=== PATIENT | female | born 1965 | race Caucasian/White ===

== ENCOUNTER 2016-08-13 19:11 | Emergency (ER) | payer BC ==
[2016-08-13] MEDS ORDERED: diphenhydrAMINE 50 MG/ML 1 ML VIAL IVP STA (19:38)
[2016-08-13] MEDS ORDERED: METOCLOPRAMIDE 5 MG/ML 2 ML VIAL IVP STA (19:38)
[2016-08-13] MEDS ORDERED: SODIUM CHLORIDE 0.9% 1,000 ML IV STA (19:38)
[2016-08-13] MEDS ORDERED: cloNIDine HCL 0.1 MG TAB PO STA (19:39)
[2016-08-13] MEDS ORDERED: LORazepam 2 MG/ML SYRINGE IV STA (19:43)
--- NOTE | 2016-08-13 19:57 | ED ---
Headache HPI - General Chief Complaint: Headache Stated Complaint: headaches/high blood pressure Time Seen by Provider: 08/13/16 19:24 Source: RN notes reviewed Mode of arrival: ambulatory Limitations: no limitations - History of Present Illness Initial Comments: Patient is a 51-year-old female chief complaint of a headache for approximately 4 days. She also reports that she's had elevated blood pressure past 4 days. She stated she checks it at [facility] and is always over 180/100. Patient denies the emergency department with a blood pressure 201/112. Patient states that she does not have a history of high blood pressure but she decided to take some stpv-wdc-eubdnwi herbal supplements to help with her blood pressure over the past week. She states that her head has a lump over the right temporal region that tends to pulsate with this headache. Patient states that she's had no abnormal mental status or dizziness. She denies any chest pain or shortness of breath. She states that she does have some changes in vision. She is a diabetic managed with metformin, she states that she has not had her metformin in over a week if she is out of her medication. She states that she has a feet headache which rates a 8 out of 10 at this time. - Related Data Previous Rx's Medication Instructions Recorded Lisinopril [Zestril] 5 mg PO BID #20 tab 08/13/16 Allergies Allergy/AdvReac Type Severity Reaction Status Date / Time acetaminophen Allergy Severe Anaphylaxis Verified 08/13/16 19:26 aspirin Allergy Anaphylaxis Verified 08/13/16 19:26 diphenhydramine HCl Allergy Anaphylaxis Verified 08/13/16 19:26 [From Benadryl] latex Allergy Rash/Hives Verified 08/13/16 19:26 NSAIDS (Non-Steroidal Allergy Dyspnea Verified 08/13/16 19:26 Anti-Inflamma Review of Systems ROS Statement: Those systems with pertinent positive or pertinent negative responses have been documented in the HPI. ROS Other: All systems not noted in ROS Statement are negative. Past Medical History Past Medical History: Asthma, Chest Pain / Angina, Diabetes Mellitus, GERD/ Reflux, Thyroid Disorder History of Any Multi-Drug Resistant Organisms: None Reported Past Surgical History: Adenoidectomy, Tonsillectomy Additional Past Surgical History / Comment(s): WRIST SURGERY Past Anesthesia/Blood Transfusion Reactions: No Reported Reaction Past Psychological History: Depression Smoking Status: Never smoker Past Alcohol Use History: None Reported Past Drug Use History: None Reported - Past Family History Father Additional Family Medical History / Comment(s): unknown Mother Additional Family Medical History / Comment(s): arthritis, carpal tunnel, ex smoker, wears glasses General Exam Limitations: no limitations Course Vital Signs 08/13/16 08/13/16 08/13/16 19:18 21:06 21:52 Temperature 98.1 F 97.5 F L Pulse Rate 78 93 79 Respiratory 20 18 18 Rate Blood Pressure 201/112 158/81 128/79 O2 Sat by Pulse 97 99 98 Oximetry Medical Decision Making - Medical Decision Making Patient is a 51-year-old female chief complaint of a headache for approximately 4 days. She also reports that she's had elevated blood pressure past 4 days. She stated she checks it at [facility] and is always over 180/100. Patient denies the emergency department with a blood pressure 201/112. Patient states that she does not have a history of high blood pressure but she decided to take some uunf-bir-ccdfvoj herbal supplements to help with her blood pressure over the past week. She states that her head has a lump over the right temporal region that tends to pulsate with this headache. Patient CT brain negative for acute process, there is evidnce of chronic sinusitis. Patient given IV diazepam and catapress. BP has dropped to 120/85. Patient reports her headache is subsiding. She states that labs are negative for any kidney damage. Patient reports she has not had her metformin medication in one week, I discussed that she needs to be on a blood pressure medication given guidelines and her being diabetic. Patient will be started on lisinopril 5mg BID. Patient advised to follow up with PCP in one week. REturn parameters discussed. - Lab Data Result diagrams: 08/13/16 20:11 08/13/16 20:11 Lab Results 08/13/16 08/13/16 Range/Units 20:11 20:11 WBC 10.1 (3.8-10.6) k/uL RBC 5.75 H (3.80-5.40) m/uL Hgb 12.5 (11.4-16.0) gm/dL Hct 41.4 (34.0-46.0) % MCV 72.0 L (80.0-100.0) fL MCH 21.7 L (25.0-35.0) pg MCHC 30.2 L (31.0-37.0) g/dL RDW 18.6 H (11.5-15.5) % Plt Count 376 (150-450) k/uL Neutrophils % 63 % Lymphocytes % 27 % Monocytes % 3 % Eosinophils % 4 % Basophils % 1 % Neutrophils # 6.3 (1.3-7.7) k/uL Lymphocytes # 2.7 (1.0-4.8) k/uL Monocytes # 0.3 (0-1.0) k/uL Eosinophils # 0.4 (0-0.7) k/uL Basophils # 0.1 (0-0.2) k/uL Hypochromasia Moderate Anisocytosis Slight Microcytosis Marked Sodium 138 (137-145) mmol/L Potassium 4.3 (3.5-5.1) mmol/L Chloride 102 (98-107) mmol/L Carbon Dioxide 26 (22-30) mmol/L Anion Gap 10 mmol/L BUN 9 (7-17) mg/dL Creatinine 0.50 L (0.52-1.04) mg/dL Est GFR (MDRD) Af Amer >60 (>60 ml/min/1.73 sqM) Est GFR (MDRD) Non-Af >60 (>60 ml/min/1.73 sqM) Glucose 339 H (74-99) mg/dL Calcium 9.5 (8.4-10.2) mg/dL - Radiology Data Radiology results: report reviewed No acute intracranial hemorrhage or midline shift seen. Acute on chronic paranasal pansinusitis as detailed above. Is a broad-based dialysis tick projection the right parietal region on axial image 29 from the Mammogram which could reflect osteochondroma. There is mild to moderate mucosal thickening involving the bilateral sphenoid sinuses within the air-fluid level of the left sphenoid sinus noted. There is mild to moderate mucosal thickening involving the ethmoid sinuses bilaterally and patchy opacifications bilaterally. There is mild mucosal thickening involving Sinuses bilaterally with air-fluid levels and left basilar sinus noted. Disposition Clinical Impression: Hypertension, Headache Disposition: HOME SELF-CARE Condition: Good Instructions: Acute Headache (ED), Hypertension (ED) Additional Instructions: Patient denies that she is follow-up with her primary care provider in 1-2 days about starting maintenance high blood pressure medication and refills of her diabetes medication. Return the emergency Department if any alarming signs or symptoms occur. Prescriptions: Lisinopril [Zestril] 5 mg PO BID #20 tab Referrals: Ortiz Martini MD [Primary Care Provider] - 1-2 days Time of Disposition: 21:20
[2016-08-13 20:29] LABS: Anisocytosis Slight; Basophils # (A) 0.1 k/uL (0-0.2); Basophils % (A) 1 %; CH 22.2; Eosinophils # (A) 0.4 k/uL (0-0.7); Eosinophils % (A) 4 %; HCT 41.4 % (34.0-46.0); HDW 3.06; HGB 12.5 gm/dL (11.4-16.0); Hypochromasia Moderate; Luc # (Auto) 0.31; Luc % (Auto) 3; Lymphocytes # (A) 2.7 k/uL (1.0-4.8); Lymphocytes % (A) 27 %; MCH 21.7 pg (25.0-35.0); MCHC 30.2 g/dL (31.0-37.0); Mean Platelet Volume 7.2; Microcytosis Marked; Monocytes # (A) 0.3 k/uL (0-1.0); Monocytes % (A) 3 %; Neutrophils # (A) 6.3 k/uL (1.3-7.7); Neutrophils % (A) 63 %; RBC 5.75 m/uL (3.80-5.40); RDW 18.6 % (11.5-15.5); WBC 10.1 k/uL (3.8-10.6)
--- NOTE | 2016-08-13 20:45 | CT ---
EXAMINATION TYPE: CT brain wo con DATE OF EXAM: 08/13/2016 8:38 PM COMPARISON: NONE HISTORY: Headache for [address] DLP: 1054.2 mGycm. Automated Exposure Control for Dose Reduction was Utilized. TECHNIQUE: CT scan of the head is performed without contrast. FINDINGS: There is no acute intracranial hemorrhage, mass effect, or midline shift identified. The ventricles and sulci are within normal limits in size. The globes are intact bilaterally. There is mild to moderate mucosal thickening involving bilateral sphenoid sinuses with air-fluid leve l in left sphenoid sinus noted. There is mild to moderate mucosal thickening involving ethmoid sinuse s bilaterally with patchy opacification bilaterally. There is mild mucosal thickening involving maxil joseline sinuses bilaterally with air-fluid level in left maxillary sinus noted. There is mild to moderat e mucosal thickening involving frontal sinuses bilaterally with dependent opacification also seen in left frontal sinus.. Broad-based ossific projection right parietal region on axial image 29 from calvarium could reflect o steochondroma. IMPRESSION: No acute intracranial hemorrhage or midline shift is seen. Acute on chronic paranasal pa nsinusitis as detailed above.
[2016-08-13 20:46] LABS: Anion Gap 10 mmol/L; Blood Urea Nitrogen 9 mg/dL (7-17); Calcium 9.5 mg/dL (8.4-10.2); Carbon Dioxide 26 mmol/L (22-30); Chloride 102 mmol/L (98-107); Glucose 339 mg/dL (74-99); Non-African American GFR(MDRD) >60 (>60 ml/min/1.73 sqM); Potassium 4.3 mmol/L (3.5-5.1); Sodium 138 mmol/L (137-145)
[2016-08-13 21:08] VITALS: RESP 18
[2016-08-13 21:53] VITALS: BP 128/79; PULSE 79; TEMP 97.5
== END 2016-08-13 21:53 | disposition home or self-care (01) ==
LOC: EC 19:11
DX: J32.4 Chronic pansinusitis (principal); I10 Essential (primary) hypertension; E11.9 Type 2 diabetes mellitus without complications; Z88.6 Allergy status to analgesic agent; Z88.8 Allergy status to other drugs, medicaments and biological substances; Z79.82 Long term (current) use of aspirin; Z91.040 Latex allergy status; Z79.899 Other long term (current) drug therapy
CPT/HCPCS: 99284; 96374; 96361; 36415; 80048; 85025; 70450; J2060

== ENCOUNTER 2017-04-17 19:12 | Emergency (ER) | payer BC ==
[2017-04-17 19:24] VITALS: TEMP 98.2
[2017-04-17] MEDS ORDERED: cloNIDine HCL 0.1 MG TAB PO STA (19:47)
--- NOTE | 2017-04-17 20:35 | ED ---
General Adult HPI - General Chief complaint: Chest Pain Stated complaint: Tingling arms/high blood pressure/headache Time Seen by Provider: 04/17/17 19:26 Source: patient Mode of arrival: wheelchair Limitations: no limitations - History of Present Illness Initial comments: This is a 52-year-old female with a history of hypertension and diabetes who presents or urgency department for multiple complaints. She states that she has some numbness on the right posterior aspect for scalp and radiates down into her neck. She is also been having some palpitations. No chest pain. She states that she has an aching in her extremities at times. She has noted that over the last 3 days that her blood pressure has been elevated. She is on hydrochlorothiazide however does not know the dosage. She states that she has been compliant with his medication. She states that she has not seen her primary care doctor in quite some time. She was here back in August for similar episodes and was found to have hypertension at that time. He was advised her to follow up with her primary care doctor however she has not done so. She denies any focal weakness, numbness, or tingling. She denies any difficult speech or swallowing. She denies any other acute complaints. - Related Data Home Medications Medication Instructions Recorded Confirmed Albuterol Inhaler [Ventolin Hfa 1 - 2 puff INHALATION RT-QID PRN 04/17/17 Inhaler] Albuterol Nebulized [Ventolin 2.5 mg INHALATION RT-QID PRN 04/17/17 04/17/17 Nebulized] Docusate [Colace] 100 mg PO DAILY PRN 04/17/17 04/17/17 Hydrochlorothiazide [Hydrodiuril] 25 mg PO DAILY 04/17/17 04/17/17 metFORMIN HCL 1,000 mg PO BID 04/17/17 04/17/17 Allergies Allergy/AdvReac Type Severity Reaction Status Date / Time acetaminophen Allergy Severe Anaphylaxis Verified 04/17/17 19:56 aspirin Allergy Anaphylaxis Verified 04/17/17 19:56 diphenhydramine HCl Allergy Anaphylaxis Verified 04/17/17 19:56 [From Benadryl] latex Allergy Rash/Hives Verified 04/17/17 19:56 NSAIDS (Non-Steroidal Allergy Dyspnea Verified 04/17/17 19:56 Anti-Inflamma Review of Systems ROS Statement: Those systems with pertinent positive or pertinent negative responses have been documented in the HPI. ROS Other: All systems not noted in ROS Statement are negative. Past Medical History Past Medical History: Asthma, Chest Pain / Angina, Diabetes Mellitus, GERD/ Reflux, Thyroid Disorder History of Any Multi-Drug Resistant Organisms: None Reported Past Surgical History: Adenoidectomy, Tonsillectomy Additional Past Surgical History / Comment(s): WRIST SURGERY Past Anesthesia/Blood Transfusion Reactions: No Reported Reaction Past Psychological History: Depression Smoking Status: Never smoker Past Alcohol Use History: None Reported Past Drug Use History: None Reported - Past Family History Father Additional Family Medical History / Comment(s): unknown Mother Additional Family Medical History / Comment(s): arthritis, carpal tunnel, ex smoker, wears glasses General Exam - General Exam Comments Initial Comments: Constitutional: Awake alert Appears comfortable Head: Normocephalic atraumatic Eyes: no conjunctival injection No scleral icterus EOMI Neck: No JVD Supple Heart: Regular rate rhythm normal S1-S2 no murmurs Lungs: Clear to auscultation bilaterally No wheezing No rales Abdomen: Soft nondistended nontender Extremities: Non edematous DP pulses intact Radial pulses intact Neuro: A&Ox3 cranial nerves II through XII are grossly intact, 5 out of 5 strength in upper and lower extremities bilaterally, sensation intact to light touch in all extremities Psych: Appropriate mood and affect Limitations: no limitations Course Vital Signs 04/17/17 04/17/17 04/17/17 19:22 21:01 21:37 Temperature 98.2 F Pulse Rate 99 87 88 Respiratory 20 18 16 Rate Blood Pressure 198/104 135/78 125/74 O2 Sat by Pulse 98 97 Oximetry EKG Findings - EKG Comments: EKG Findings:: EKG showing no signs rhythm with a rate of 82. No abnormal ST segment changes or T-wave inversion. QTC is 455. Other intervals normal. No ectopy. Medical Decision Making - Medical Decision Making Is a 52-year-old female who presents emergency department for multiple complaints including numbness and tingling in her extremities, headache, right- sided urine neck fullness, and headache. Blood pressure was severely elevated. She was given 0.1 mg of clonidine with resolution of her blood pressure and majority of her symptoms. She still a little bit a numbness in her extremities and a mild headache. The patient states that she is ALLERGIC to all NSAIDs and acetaminophen. Told her that I would not treat her headache with opiates. Patient stated that she wanted to go home. She is on hydrochlorothiazide and I told her that if needed she could take a second dose in the afternoon but she needs close follow- up with her primary doctor for better blood pressure control. Told to return if she had worsening or changing symptoms. All questions were answered. - Lab Data Result diagrams: 04/17/17 20:28 04/17/17 20:28 Lab Results 04/17/17 04/17/17 04/17/17 Range/Units 20:28 20:28 20:28 WBC 9.3 (3.8-10.6) k/uL RBC 5.80 H (3.80-5.40) m/uL Hgb 12.8 (11.4-16.0) gm/dL Hct 41.1 (34.0-46.0) % MCV 70.8 L (80.0-100.0) fL MCH 22.0 L (25.0-35.0) pg MCHC 31.1 (31.0-37.0) g/dL RDW 18.5 H (11.5-15.5) % Plt Count 369 (150-450) k/uL Neutrophils % 56 % Lymphocytes % 33 % Monocytes % 5 % Eosinophils % 4 % Basophils % 1 % Neutrophils # 5.2 (1.3-7.7) k/uL Lymphocytes # 3.1 (1.0-4.8) k/uL Monocytes # 0.5 (0-1.0) k/uL Eosinophils # 0.4 (0-0.7) k/uL Basophils # 0.1 (0-0.2) k/uL Hypochromasia Slight Anisocytosis Slight Microcytosis Marked Sodium 137 (137-145) mmol/L Potassium 4.6 (3.5-5.1) mmol/L Chloride 100 (98-107) mmol/L Carbon Dioxide 24 (22-30) mmol/L Anion Gap 13 mmol/L BUN 9 (7-17) mg/dL Creatinine 0.40 L (0.52-1.04) mg/dL Est GFR (MDRD) Af Amer >60 (>60 ml/min/1.73 sqM) Est GFR (MDRD) Non-Af >60 (>60 ml/min/1.73 sqM) Glucose 278 H (74-99) mg/dL Calcium 10.2 (8.4-10.2) mg/dL Total Bilirubin 0.4 (0.2-1.3) mg/dL AST 36 (14-36) U/L ALT 42 (9-52) U/L Alkaline Phosphatase 93 (38-126) U/L Total Protein 7.8 (6.3-8.2) g/dL Albumin 4.4 (3.5-5.0) g/dL Urine Color Light Yellow Urine Appearance Clear (Clear) Urine pH 6.0 (5.0-8.0) Ur Specific Byron 1.017 (1.001-1.035) Urine Protein 1+ H (Negative) Urine Glucose (UA) 4+ H (Negative) Urine Ketones Negative (Negative) Urine Blood Negative (Negative) Urine Nitrite Negative (Negative) Urine Bilirubin Negative (Negative) Urine Urobilinogen <2.0 (<2.0) mg/dL Ur Leukocyte Esterase Negative (Negative) Urine RBC 1 (0-5) /hpf Urine WBC 6 H (0-5) /hpf Ur Squamous Epith Cells 1 (0-4) /hpf Urine Mucus Rare H (None) /hpf Disposition Clinical Impression: HTN (hypertension), Headache Disposition: HOME SELF-CARE Condition: Stable Instructions: Hypertensive Crisis (ED) Referrals: Ortiz Martini MD [STAFF PHYSICIAN] - 1-2 days Paul Samuel MD [STAFF PHYSICIAN] - 1-2 days
[2017-04-17 20:42] LABS: Anisocytosis Slight; Basophils # (A) 0.1 k/uL (0-0.2); Basophils % (A) 1 %; CH 22.1; CHCM 31.4; Eosinophils # (A) 0.4 k/uL (0-0.7); Eosinophils % (A) 4 %; HCT 41.1 % (34.0-46.0); HDW 2.88; HGB 12.8 gm/dL (11.4-16.0); Hypochromasia Slight; Luc % (Auto) 1; Lymphocytes # (A) 3.1 k/uL (1.0-4.8); Lymphocytes % (A) 33 %; MCHC 31.1 g/dL (31.0-37.0); MCV 70.8 fL (80.0-100.0); Mean Platelet Volume 8.2; Microcytosis Marked; Monocytes # (A) 0.5 k/uL (0-1.0); Monocytes % (A) 5 %; Neutrophils # (A) 5.2 k/uL (1.3-7.7); Neutrophils % (A) 56 %; RDW 18.5 % (11.5-15.5); WBC 9.3 k/uL (3.8-10.6); WBC (Perox) 9.34
[2017-04-17 20:44] LABS: Appearance,Urine Clear (Clear); Bilirubin,Urine Negative (Negative); Glucose,Urine (UA) 4+ (Negative); Ketones,Urine Negative (Negative); Leukocyte Esterase,Urine Negative (Negative); Mucus,Urine Rare /hpf; Nitrite,Urine Negative (Negative); Particle Count 461; Protein,Urine 1+ (Negative); RBC,Urine 1 /hpf (0-5); Specific Gravity,Urine 1.017 (1.001-1.035); Squamous Epithelial Cell,Urine 1 /hpf (0-4); UA Billing (MACRO vs. MICRO) MICRO; Urobilinogen,Urine <2.0 mg/dL (<2.0); WBC,Urine 6 /hpf (0-5)
[2017-04-17 20:56] LABS: ALT 42 U/L (9-52); AST 36 U/L (14-36); Alkaline Phosphatase 93 U/L (38-126); Anion Gap 13 mmol/L; Blood Urea Nitrogen 9 mg/dL (7-17); Calcium 10.2 mg/dL (8.4-10.2); Carbon Dioxide 24 mmol/L (22-30); Chloride 100 mmol/L (98-107); Glucose 278 mg/dL (74-99); Non-African American GFR(MDRD) >60 (>60 ml/min/1.73 sqM); Potassium 4.6 mmol/L (3.5-5.1); Sodium 137 mmol/L (137-145); Total Bilirubin 0.4 mg/dL (0.2-1.3); Total Protein 7.8 g/dL (6.3-8.2)
--- NOTE | 2017-04-17 20:57 | CT ---
EXAMINATION TYPE: CT brain wo con DATE OF EXAM: 04/17/2017 COMPARISON: 08/13/2016 HISTORY: Hypertension and right side SUAREZ. CT DLP: 945.3 mGycm Automated exposure control for dose reduction was used. FINDINGS: Ventricles and sulci appear normal. There is no mass effect nor midline shift. There is no sign of in tracranial hemorrhage. The calvarium is intact. There is moderate mucosal thickening in the ethmoid s inuses extending into the frontal and sphenoid sinus. There is mild mucosal thickening in right maxil joseline sinus. IMPRESSION: NEGATIVE CT SCAN OF THE BRAIN. THERE IS PANSINUSITIS THAT IS SIMILAR TO OLD EXAM.
[2017-04-17 21:38] VITALS: BP 125/74; PULSE 88; RESP 16
== END 2017-04-17 21:40 | disposition home or self-care (01) ==
LOC: EC 19:12
DX: I10 Essential (primary) hypertension (principal); R51 Headache; E11.9 Type 2 diabetes mellitus without complications; Z88.5 Allergy status to narcotic agent; Z88.6 Allergy status to analgesic agent; Z88.8 Allergy status to other drugs, medicaments and biological substances; Z91.040 Latex allergy status; Z79.84 Long term (current) use of oral hypoglycemic drugs; Z79.899 Other long term (current) drug therapy
CPT/HCPCS: 36415; 70450; 80053; 81001; 85025; 93005; 99285

== ENCOUNTER 2017-05-18 07:50 | Day surgery (SDC) | payer BC ==
[2017-05-16 18:19] VITALS: BMI 37.0
[~2017-05-18 07:50] MED LIST: LACTATED RINGERS 1,000 ML IV SCH; LIDOCAINE 1% 20 ML VIAL (10MG/ML) FOR IV START INTRADERMA PRN
[2017-05-18 08:08] VITALS: RESP 16; TEMP 97.3
[2017-05-18] MEDS ORDERED: INSULIN ASPART 100 UNIT/ML 1 ML 10 ML VIAL SQ ONE (08:20)
[2017-05-18 08:22] LABS: Glucose,Whole Blood 362 mg/dL (75-99)
[2017-05-18] MEDS ORDERED: ONDANSETRON 4 MG/2 ML VIAL ONE (08:39)
[2017-05-18] MEDS ORDERED: PROPOFOL 10 MG/ML 20 ML VIAL IV ONE (08:39)
[2017-05-18] MEDS ORDERED: LIDOCAINE 1% INJ 10MG/ML (20 ML MDV) ONE (08:39)
[2017-05-18] MEDS ORDERED: MIDAZOLAM 2 MG/2 ML VIAL ONE (08:39)
--- NOTE | 2017-05-18 08:53 | P.PCN ---
Date of Procedure: 05/18/17 Procedure(s) Performed: BRIEF HISTORY: Patient is a 52-year-old, pleasant, white female, scheduled for an upper endoscopy as a part of evaluation of progressive dysphagia to solids for the last 1 year duration. She has more like a globus sensation in her throat area constantly with intermittent dysphagia to solids and liquids and has occasional heartburn. Also complains of some odynophagia. PROCEDURE PERFORMED: Esophagogastroduodenoscopy with biopsy. PREOPERATIVE DIAGNOSIS: Dysphagia and globus sensation. IV sedation per anesthesia. PROCEDURE: After informed consent was obtained, the patient was brought into the endoscopy unit. IV sedation was administered by Anesthesia under continuous monitoring. Initially the Olympus GIF-140 video endoscope was inserted into the mouth. Esophagus intubated without any difficulty. It was gradually advanced into the stomach and duodenum and carefully examined. The bulb and the second part of the duodenum appeared normal. The scope at this time was withdrawn to the stomach, adequately insufflated with air, and upon careful examination, mucosa of the antrum,had mild gastritis and biopsies were done from this area. The body, cardia and the fundus appeared normal. The scope was then withdrawn into the esophagus. The GE junction was located at 39 cm from the incisors. The esophagus appeared normal. There was no evidence of esophageal stricture. There were no erosions or ulcerations seen . The proximal cervical esophagus was carefully examined and that appeared normal. Multiple biopsies were done from esophagus to rule out eosinophilic esophagitis and the patient tolerated the procedure well. IMPRESSION: 1. Mild antral gastritis . 2. Normal-appearing esophagus with no evidence of esophagitis or esophageal stricture.. RECOMMENDATIONS: The findings of this examination were discussed with the patient as well as a family. She was advised to follow with the biopsy results.
[2017-05-18 09:28] VITALS: BP 133/91; PULSE 95
== END 2017-05-18 09:56 | disposition home or self-care (01) ==
LOC: ORWHC2ENDO 07:50
PROVIDERS: ATTEND Internal Medicine Gastroenterology
DX: K29.50 Unspecified chronic gastritis without bleeding (principal); K21.0 Gastro-esophageal reflux disease with esophagitis; J45.909 Unspecified asthma, uncomplicated; E11.9 Type 2 diabetes mellitus without complications; E04.1 Nontoxic single thyroid nodule; Z88.6 Allergy status to analgesic agent; Z88.8 Allergy status to other drugs, medicaments and biological substances; Z79.84 Long term (current) use of oral hypoglycemic drugs; Z79.899 Other long term (current) drug therapy
CPT/HCPCS: 43239; 81025; 88305; 88342; J2250; J2405; J2001; J2704

== ENCOUNTER → 2017-05-31 | Outpatient (CLI) | payer BC ==
--- NOTE | 2017-05-31 15:21 | XR ---
EXAMINATION TYPE: XR chest 2V DATE OF EXAM: 05/31/2017 COMPARISON: 11/20/2013 INDICATION: Cough history of asthma TECHNIQUE: Frontal and lateral views of the chest are obtained. FINDINGS: The heart size is normal. The pulmonary vasculature is normal. The lungs are clear. IMPRESSION: 1. No acute pulmonary process.
== END | disposition home or self-care (01) ==
LOC: RADXRMAIN 14:47
PROVIDERS: ATTEND Allergy & Immunology
DX: J45.909 Unspecified asthma, uncomplicated (principal)
CPT/HCPCS: 71020

== ENCOUNTER → 2017-05-31 | Outpatient (CLI) | payer BC ==
--- NOTE | 2017-05-31 15:12 | XR ---
EXAMINATION TYPE: XR knee complete RT DATE OF EXAM: 05/31/2017 COMPARISON: NONE HISTORY: Right knee pain, chronic TECHNIQUE: Three-view right knee FINDINGS: Joint spaces preserved. No acute fractures or dislocations are evident. No joint effusion i s evident. No periarticular erosions are evident. IMPRESSION: 1. Normal three-view right knee
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
--- NOTE | 2017-05-31 15:18 | XR ---
EXAMINATION TYPE: XR pelvis AP view DATE OF EXAM: 05/31/2017 COMPARISON: NONE HISTORY: Radiculopathy back pain TECHNIQUE: AP pelvis FINDINGS: Sacroiliac joints and symphysis pubis are normal. Femoral heads articulate with the acetabu lum. No acute fractures are evident. Normal bowel gas is present. IMPRESSION: 1. Normal AP pelvis
--- NOTE | 2017-05-31 15:33 | XR ---
EXAMINATION TYPE: XR cervical spine limited DATE OF EXAM: 05/31/2017 COMPARISON: NONE HISTORY: Radiculopathy chronic neck pain low back pain TECHNIQUE: Three-view cervical spine supplemented with submental vertex view FINDINGS: There is limitation of the C7-T1 interspace. The odontoid is limited on the odontoid view f rom mandible present with visualization of the submental vertex view Disc heights are preserved. Vertebral body heights are preserved. Alignment is normal. Prevertebral s pace is normal. Posterior spinal lamellar line is intact. IMPRESSION: 1. Visualized cervical spine appears normal.
== END | disposition home or self-care (01) ==
LOC: RADXRMAIN 14:39
PROVIDERS: ATTEND Internal Medicine Rheumatology
DX: M47.27 Other spondylosis with radiculopathy, lumbosacral region (principal); M54.12 Radiculopathy, cervical region; M25.561 Pain in right knee
CPT/HCPCS: 72040; 72100; 72170

== ENCOUNTER → 2018-01-16 | Outpatient (CLI) | payer BC ==
--- NOTE | 2018-01-16 13:36 | XR ---
EXAMINATION TYPE: XR chest 2V DATE OF EXAM: 01/16/2018 COMPARISON: Chest x-ray May 31, 2017 HISTORY: History of asthma presents with cough and shortness of breath for 2 days. TECHNIQUE: Frontal and lateral views of the chest are obtained. FINDINGS: There is no focal air space opacity, pleural effusion, or pneumothorax seen. The cardiac silhouette size is within normal limits. The osseous structures are intact. IMPRESSION: No suspicious acute pulmonary process. No significant change from prior.
== END | disposition home or self-care (01) ==
LOC: RADXRMAIN 12:40
PROVIDERS: ATTEND Family Medicine
DX: R05 Cough (principal)
CPT/HCPCS: 71046

== ENCOUNTER 2019-04-23 00:41 | Inpatient (IN) | payer BC ==
--- NOTE | 2019-04-23 01:02 | ED ---
Abdominal Pain HPI - General Chief Complaint: Abdominal Pain Stated Complaint: Back Pain Time Seen by Provider: 04/23/19 00:55 Source: patient Mode of arrival: wheelchair Limitations: physical limitation - History of Present Illness Initial Comments: Ceci is a 54yo female who presents the emergency department today for evaluation of right upper quadrant, right flank and back pain. Patient reports that she was in her usual state of health throughout the day yesterday, she had dinner around 9 PM, she reports she doesn't really like it but she had a few bites of hamburger helper. She reports around 10:30 she developed pain in her right flank, upper quadrant and back. Patient reports she feels like she is having some nausea but no vomiting and feels like her back is spasming due to the pain. Patient reports she has a history of kidney stones in the distant past but is nothing like this. Patient denies any previous GI surgeries. Any GI pathology. She denies any recent diarrhea though she does state she's been somewhat backed up and not had a good bowel movement. Denies any fevers or chills, chest pain or shortness of breath. - Related Data Home Medications Medication Instructions Recorded Confirmed Albuterol Inhaler [Ventolin Hfa 1 - 2 puff INHALATION RT-QID PRN 04/17/17 06/01/17 Inhaler] Docusate [Colace] 100 mg PO DAILY PRN 04/17/17 06/01/17 Hydrochlorothiazide [Hydrodiuril] 25 mg PO DAILY 04/17/17 06/01/17 metFORMIN HCL 1,000 mg PO BID 04/17/17 06/01/17 Fluconazole [Diflucan] 150 mg PO DAILY 06/01/17 Sulfamethox-Tmp 800-160Mg [Bactrim 1 tab PO Q12HR 06/01/17 DS 800-160 mg] Allergies Allergy/AdvReac Type Severity Reaction Status Date / Time acetaminophen Allergy Severe Anaphylaxis Verified 04/23/19 00:49 aspirin Allergy Anaphylaxis Verified 04/23/19 00:49 diphenhydramine HCl Allergy Anaphylaxis Verified 04/23/19 00:49 [From Benadryl] latex Allergy Rash/Hives Verified 04/23/19 00:49 NSAIDS (Non-Steroidal Allergy Dyspnea Verified 04/23/19 00:49 Anti-Inflamma STERIODS Allergy Rash/Hives Uncoded 04/23/19 00:49 Review of Systems ROS Statement: Those systems with pertinent positive or pertinent negative responses have been documented in the HPI. ROS Other: All systems not noted in ROS Statement are negative. Past Medical History Past Medical History: Asthma, Chest Pain / Angina, Diabetes Mellitus, GERD/Reflux, Thyroid Disorder History of Any Multi-Drug Resistant Organisms: None Reported Past Surgical History: Adenoidectomy, Tonsillectomy Additional Past Surgical History / Comment(s): WRIST SURGERY Past Anesthesia/Blood Transfusion Reactions: No Reported Reaction Past Psychological History: Depression Smoking Status: Never smoker Past Alcohol Use History: None Reported - Past Family History Father Additional Family Medical History / Comment(s): unknown Mother Additional Family Medical History / Comment(s): arthritis, carpal tunnel, ex smoker, wears glasses General Exam - General Exam Comments Initial Comments: Physical Exam GENERAL: Appears uncomfortable HENT: Normocephalic, Atraumatic. EYES: PERRL, EOMI PULMONARY: Unlabored respirations. No audible rales rhonchi or wheezing was noted. CARDIOVASCULAR: There is a regular rate and rhythm without any murmurs gallops or rubs. ABDOMEN: Soft with normal bowel sounds. Tenderness to palpation right upper quadrant, epigastrium SKIN: Skin is clear with no lesions or rashes and otherwise unremarkable. : Deferred NEUROLOGIC: Patient is alert and oriented x3. Moving all extremities spontaneously MUSCULOSKELETAL: Normal extremities with adequate strength and full range of motion. No lower extremity swelling or edema. No calf tenderness. PSYCHIATRIC: Normal psychiatric evaluation. Limitations: physical limitation Course Vital Signs 04/23/19 04/23/19 04/23/19 00:42 01:23 03:11 Temperature 98.1 F 98 F Pulse Rate 86 103 H 82 Respiratory 18 20 18 Rate Blood Pressure 228/92 166/96 139/86 O2 Sat by Pulse 94 L 97 97 Oximetry Medical Decision Making - Medical Decision Making The patient was seen and evaluated, history is obtained from the patient This is a obese 54-year-old female presenting with right upper quadrant abdominal pain after eating hamburger helper. Labs were ordered and resulted with no acute abnormalities aside from mild hyperglycemia. However patient persistent pain after morphine and a computed tomography scan was ordered. Computed tomography scan revealed a very large gallstone with no obvious relation of the gallbladder or bile ducts Patient had transient improvement in her pain after morphine however reports continued pain. Patient reports spasming like pain of her entire back which she feels is secondary to the pain in her abdomen. Patient was given Norflex reported no improvement. Patient was reevaluated now complaining of epigastric pain therefore she was given a GI cocktail however she reports that make her nausea worse and made her feel he should burning epigastric pain. At this time I discussed disposition options with the patient, no interventions here have improved her discomfort or nausea, therefore I feel she would benefit from being placed in observation unit for IV fluids, further attempts at pain management and ultrasound in the morning with possible evaluation by general surgery or a HIDA scan. Patient is agreeable with this plan. - Lab Data Result diagrams: 04/23/19 01:00 04/23/19 01:00 Lab Results 04/23/19 04/23/19 04/23/19 Range/Units 00:55 01:00 01:00 WBC 10.3 (3.8-10.6) k/uL RBC 5.03 (3.80-5.40) m/uL Hgb 13.7 (11.4-16.0) gm/dL Hct 40.3 (34.0-46.0) % MCV 80.1 (80.0-100.0) fL MCH 27.2 (25.0-35.0) pg MCHC 33.9 (31.0-37.0) g/dL RDW 14.1 (11.5-15.5) % Plt Count 364 (150-450) k/uL Neutrophils % 57 % Lymphocytes % 34 % Monocytes % 4 % Eosinophils % 4 % Basophils % 0 % Neutrophils # 5.9 (1.3-7.7) k/uL Lymphocytes # 3.5 (1.0-4.8) k/uL Monocytes # 0.4 (0-1.0) k/uL Eosinophils # 0.4 (0-0.7) k/uL Basophils # 0.0 (0-0.2) k/uL Sodium 138 (137-145) mmol/L Potassium 4.5 (3.5-5.1) mmol/L Chloride 102 (98-107) mmol/L Carbon Dioxide 25 (22-30) mmol/L Anion Gap 11 mmol/L BUN 12 (7-17) mg/dL Creatinine 0.58 (0.52-1.04) mg/dL Est GFR (CKD-EPI)AfAm >90 (>60 ml/min/1.73 sqM) Est GFR (CKD-EPI)NonAf >90 (>60 ml/min/1.73 sqM) Glucose 364 H (74-99) mg/dL Calcium 9.6 (8.4-10.2) mg/dL Magnesium 1.9 (1.6-2.3) mg/dL Total Bilirubin 0.2 (0.2-1.3) mg/dL AST 25 (14-36) U/L ALT 39 (9-52) U/L Alkaline Phosphatase 82 (38-126) U/L Total Protein 8.1 (6.3-8.2) g/dL Albumin 4.6 (3.5-5.0) g/dL Amylase 51 (30-110) U/L Lipase 223 (23-300) U/L Urine Color Light Yellow Urine Appearance Clear (Clear) Urine pH 6.0 (5.0-8.0) Ur Specific Patterson 1.020 (1.001-1.035) Urine Protein Negative (Negative) Urine Glucose (UA) 4+ H (Negative) Urine Ketones Negative (Negative) Urine Blood Negative (Negative) Urine Nitrite Negative (Negative) Urine Bilirubin Negative (Negative) Urine Urobilinogen <2.0 (<2.0) mg/dL Ur Leukocyte Esterase Negative (Negative) Disposition Clinical Impression: Cholelithiasis, Symptomatic cholelithiasis Disposition: HOME SELF-CARE Condition: Stable Instructions (If sedation given, give patient instructions): Biliary Colic (ED), Gallstones (ED) Is patient prescribed a controlled substance at d/c from ED?: No Referrals: Jante Nava MD [Primary Care Provider] - 1-2 days Gene Kwon MD [STAFF PHYSICIAN] - 1-2 days
[2019-04-23] MEDS ORDERED: SODIUM CHLORIDE 0.9% 1,000 ML IV STA (01:03)
[2019-04-23 01:16] LABS: Basophils % (A) 0 %; Eosinophils # (A) 0.4 k/uL (0-0.7); Eosinophils % (A) 4 %; HCT 40.3 % (34.0-46.0); HGB 13.7 gm/dL (11.4-16.0); Lymphocytes # (A) 3.5 k/uL (1.0-4.8); Lymphocytes % (A) 34 %; MCH 27.2 pg (25.0-35.0); MCHC 33.9 g/dL (31.0-37.0); MCV 80.1 fL (80.0-100.0); Mean Platelet Volume 6.5; Monocytes # (A) 0.4 k/uL (0-1.0); Monocytes % (A) 4 %; Neutrophils # (A) 5.9 k/uL (1.3-7.7); Neutrophils % (A) 57 %; Platelet Count 364 k/uL (150-450); RBC 5.03 m/uL (3.80-5.40); RDW 14.1 % (11.5-15.5); WBC 10.3 k/uL (3.8-10.6)
[2019-04-23 01:21] LABS: ALT 39 U/L (9-52); AST 25 U/L (14-36); African American GFR (CKD) >90 (>60 ml/min/1.73 sqM); Albumin 4.6 g/dL (3.5-5.0); Alkaline Phosphatase 82 U/L (38-126); Amylase 51 U/L (30-110); Anion Gap 11 mmol/L; Blood Urea Nitrogen 12 mg/dL (7-17); Calcium 9.6 mg/dL (8.4-10.2); Carbon Dioxide 25 mmol/L (22-30); Chloride 102 mmol/L (98-107); Glucose 364 mg/dL (74-99); Magnesium 1.9 mg/dL (1.6-2.3); Non-African American GFR(CKD) >90 (>60 ml/min/1.73 sqM); Potassium 4.5 mmol/L (3.5-5.1); Sodium 138 mmol/L (137-145); Total Bilirubin 0.2 mg/dL (0.2-1.3); Total Protein 8.1 g/dL (6.3-8.2)
--- NOTE | 2019-04-23 01:22 | XR ---
EXAMINATION TYPE: XR abdomen 2V DATE OF EXAM: 04/23/2019 COMPARISON: 04/30/2015 HISTORY: Abdominal pain TECHNIQUE: Supine and upright views FINDINGS: There is no sign of intestinal obstruction or pneumoperitoneum. Fecal pattern is normal. Th ere is no sign of a mass. Lung bases are clear. There are no pathologic calcifications. IMPRESSION: Nonacute abdomen. No change.
[2019-04-23 01:24] LABS: Appearance,Urine Clear (Clear); Bilirubin,Urine Negative (Negative); Blood,Urine Negative (Negative); Color,Urine Light Yellow; Glucose,Urine (UA) 4+ (Negative); Ketones,Urine Negative (Negative); Leukocyte Esterase,Urine Negative (Negative); Nitrite,Urine Negative (Negative); Protein,Urine Negative (Negative); Urobilinogen,Urine <2.0 mg/dL (<2.0)
[2019-04-23] MEDS ORDERED: MORPHINE SULFATE 4 MG/ML SYRINGE IVP STA (01:37)
[2019-04-23] MEDS ORDERED: ONDANSETRON 4 MG/2 ML VIAL IVP STA (01:37)
--- NOTE | 2019-04-23 02:14 | CT ---
EXAMINATION TYPE: CT abdomen pelvis w con DATE OF EXAM: 04/23/2019 COMPARISON: 04/30/2015 HISTORY: Patient presents with abdominal pain. CT DLP: 2062 mGycm Automated exposure control for dose reduction was used. TECHNIQUE: Helical acquisition of images was performed from the lung bases through the pelvis. CONTRAST: Performed without Oral Contrast and with IV Contrast, patient injected with 100mL mL of Isovue 300. FINDINGS: Lung bases are clear. There is no pleural effusion. Heart size is normal. Liver spleen pancreas appear normal. There are large calcified gallstones. Bile ducts are not dilated . Stomach is intact. There is no adrenal mass. Kidneys show satisfactory contrast opacification. There is no hydronephrosi s. Bladder distends smoothly. There is no inguinal hernia. There is no free fluid in the pelvis. Uter us is anteverted and appears normal. There is no free fluid in the pelvis. There is no mesenteric edema. There is no ascites or free air. There is no sign of a bowel obstructio n. There is a short medial appendix. There are some spondylotic changes in the lumbar spine. There is no compression fracture. Bony pelvis is intact.. IMPRESSION: LARGE GALLSTONES. NO DILATED DUCTS. NO ADVERSE CHANGE COMPARED TO OLD EXAM.
[2019-04-23] MEDS ORDERED: ORPHENADRINE 30 MG/ML 2 ML VIAL IM STA (02:54)
[2019-04-23] MEDS ORDERED: MAG HYDROX/AL HYDROX/SIMETH 30 ML, HYOSCYAMINE ELIXIR 10 ML, LIDOCAINE VISCOUS 2% 10 ML PO STA ×3 (03:54)
[2019-04-23] MEDS ORDERED: NALOXONE 0.4 MG/ML 1 ML VIAL IV PRN (04:56)
[2019-04-23 05:26] LABS: Glucose,Whole Blood 300 mg/dL (75-99)
[2019-04-23] MEDS: INSULIN ASPART (NovoLOG) 100 UNIT/ML VIAL SQ SCH ×4 (05:41→20:40)
[2019-04-23] MEDS: SODIUM CHLORIDE 0.9% 1,000 ML IV SCH ×3 (05:45→20:33)
[2019-04-23 06:38] VITALS: BMI 38.5
[2019-04-23] MEDS: MORPHINE SULFATE 4 MG/ML SYRINGE IV PRN ×2 (06:53→17:03)
--- NOTE | 2019-04-23 08:16 | US ---
EXAMINATION TYPE: US gallbladder DATE OF EXAM: 04/23/2019 COMPARISON: NONE CLINICAL HISTORY: RUQ pain, gallstones on CT. EXAM MEASUREMENTS: Liver Length: 14.2 cm Gallbladder Wall: 0.3 cm CBD: 0.2 cm Right Kidney: 10.5 x 4.9 x 5.0 cm Morbidly obese patient with extensive overlying bowel gas, technically difficult study. Pancreas: mostly obscured by bowel gas Liver: Increased attenuation, decreased visualization of vessels suggestive of fatty infiltrate. Thi s limits evaluation for hepatic masses. Gallbladder: multiple large gallstones and possible sludge. No pericholecystic fluid. Evidence for sonographic Barton's sign: no CBD: not well visualized due to limitations Right Kidney: wnl IMPRESSION: 1. Cholelithiasis and biliary sludge. Common bile duct is not well visualized patient body habitus. W hat is thought to represent the common bile duct is nonenlarged. No convincing ultrasound evidence of acute cholecystitis. 2. Sonographic findings most commonly related to hepatic steatosis. Correlate with liver function justine ts. 3. Suboptimal visualization of the pancreas due to overlying bowel gas and patient body habitus.
[2019-04-23] MEDS ORDERED: IV FLUID CONTINUATION 600 ML IV ONE (09:16)
--- NOTE | 2019-04-23 09:44 | P.GSCN ---
History of Present Illness Consult date: 04/23/19 Reason for Consult: Right upper quadrant pain History of present illness: This a 54-year-old female who's had complaints of right quadrant pain. Patient was admitted through the emergency room last night. She is workup found have evidence of cholelithiasis. Patient's pain came on suddenly last night. She describes pain with eating. Past Medical History Past Medical History: Asthma, Chest Pain / Angina, Diabetes Mellitus, GERD/Reflux History of Any Multi-Drug Resistant Organisms: None Reported Past Surgical History: Adenoidectomy, Tonsillectomy Additional Past Surgical History / Comment(s): Right WRIST SURGERY, sinus surgery Past Anesthesia/Blood Transfusion Reactions: No Reported Reaction Additional Past Anesthesia/Blood Transfusion Reaction / Comm: Lidocaine- rash Past Psychological History: Depression Additional Psychological History / Comment(s): Mom in January so she has some times she feels down. Smoking Status: Never smoker Past Alcohol Use History: None Reported Past Drug Use History: None Reported - Past Family History Father Additional Family Medical History / Comment(s): unknown Mother Additional Family Medical History / Comment(s): arthritis, carpal tunnel, ex smoker, wears glasses Medications and Allergies Home Medications Medication Instructions Recorded Confirmed Type Albuterol Inhaler [Ventolin Hfa 2 puff INHALATION RT-Q4H PRN 04/17/17 04/23/19 History Inhaler] metFORMIN HCL 1,000 mg PO DAILY 04/17/17 04/23/19 History Cyanocobalamin (Vitamin B-12) 1,000 mcg PO DAILY 04/23/19 04/23/19 History [Vitamin B-12] EPINEPHrine (Auto Inject) [Epipen] 0.3 mg SQ ONCE PRN 04/23/19 04/23/19 History Ergocalciferol (Vitamin D2) 50,000 unit PO Q30D 04/23/19 04/23/19 History [Drisdol] L.acidoph,Paracasei, B.lactis 1 tab PO DAILY 04/23/19 04/23/19 History [Probiotic] Levalbuterol Nebulized [Xopenex 1.25 mg INHALATION RT-Q4H PRN 04/23/19 04/23/19 History Nebulized] Levocetirizine Dihydrochloride 5 mg PO DAILY PRN 04/23/19 04/23/19 History [Xyzal] Liraglutide [Victoza 3-Ebenezer] 1.8 mg SQ DAILY 04/23/19 04/23/19 History Lorcaserin HCl [Belviq Xr] 20 mg PO DAILY 04/23/19 04/23/19 History Turmeric Root Extract [Turmeric] 500 mg PO DAILY 04/23/19 04/23/19 History Unknown Otc Water Pill 1 tab PO DAILY 04/23/19 04/23/19 History Allergies Allergy/AdvReac Type Severity Reaction Status Date / Time acetaminophen Allergy Severe Anaphylaxis Verified 04/23/19 06:40 aspirin Allergy Anaphylaxis Verified 04/23/19 06:40 diphenhydramine HCl Allergy Swelling Verified 04/23/19 06:40 [From Benadryl] latex Allergy Rash/Hives Verified 04/23/19 06:40 NSAIDS (Non-Steroidal Allergy Dyspnea Verified 04/23/19 06:40 Anti-Inflamma STERIODS Allergy Rash/Hives Uncoded 04/23/19 06:40 Surgical - Exam Vital Signs Temp Pulse Resp BP Pulse Ox 98.1 F 86 18 228/92 94 L 04/23/19 00:42 04/23/19 00:42 04/23/19 00:42 04/23/19 00:42 04/23/19 00:42 - General well developed, well nourished, no distress - Eyes PERRL - ENT normal pinna - Neck no masses - Respiratory normal expansion - Cardiovascular Rhythm: regular - Abdomen Abdomen: soft, non tender Results - Labs 04/23/19 01:00 04/23/19 01:00 Abnormal Lab Results - Last 24 Hours (Table) 04/23/19 04/23/19 04/23/19 Range/Units 00:55 01:00 05:24 Glucose 364 H (74-99) mg/dL POC Glucose (mg/dL) 300 H (75-99) mg/dL Urine Glucose (UA) 4+ H (Negative) Diabetes panel 04/23/19 Range/Units 01:00 Sodium 138 (137-145) mmol/L Potassium 4.5 (3.5-5.1) mmol/L Chloride 102 (98-107) mmol/L Carbon Dioxide 25 (22-30) mmol/L BUN 12 (7-17) mg/dL Creatinine 0.58 (0.52-1.04) mg/dL Glucose 364 H (74-99) mg/dL Calcium 9.6 (8.4-10.2) mg/dL AST 25 (14-36) U/L ALT 39 (9-52) U/L Alkaline Phosphatase 82 (38-126) U/L Total Protein 8.1 (6.3-8.2) g/dL Albumin 4.6 (3.5-5.0) g/dL Calcium panel 04/23/19 Range/Units 01:00 Calcium 9.6 (8.4-10.2) mg/dL Albumin 4.6 (3.5-5.0) g/dL Pituitary panel 04/23/19 Range/Units 01:00 Sodium 138 (137-145) mmol/L Potassium 4.5 (3.5-5.1) mmol/L Chloride 102 (98-107) mmol/L Carbon Dioxide 25 (22-30) mmol/L BUN 12 (7-17) mg/dL Creatinine 0.58 (0.52-1.04) mg/dL Glucose 364 H (74-99) mg/dL Calcium 9.6 (8.4-10.2) mg/dL Adrenal panel 04/23/19 Range/Units 01:00 Sodium 138 (137-145) mmol/L Potassium 4.5 (3.5-5.1) mmol/L Chloride 102 (98-107) mmol/L Carbon Dioxide 25 (22-30) mmol/L BUN 12 (7-17) mg/dL Creatinine 0.58 (0.52-1.04) mg/dL Glucose 364 H (74-99) mg/dL Calcium 9.6 (8.4-10.2) mg/dL Total Bilirubin 0.2 (0.2-1.3) mg/dL AST 25 (14-36) U/L ALT 39 (9-52) U/L Alkaline Phosphatase 82 (38-126) U/L Total Protein 8.1 (6.3-8.2) g/dL Albumin 4.6 (3.5-5.0) g/dL Assessment and Plan Assessment: Right upper quadrant pain Cholelithiasis We'll perform laparoscopic cholecystectomy
[2019-04-23 09:51] LABS: Glucose,Whole Blood 137 mg/dL (75-99)
[2019-04-23] MEDS: ONDANSETRON 4 MG/2 ML VIAL IVP PRN (09:53)
[2019-04-23] MEDS ORDERED: HEPARIN SODIUM,PORCINE 5,000 UNIT/ML 1 ML VIAL SQ ONE (09:57)
[2019-04-23] MEDS ORDERED: GLYCOPYRROLATE 0.2 MG/ML 2 ML VIAL ONE (10:06)
[2019-04-23] MEDS ORDERED: PROPOFOL 10 MG/ML 20 ML VIAL IV ONE (10:06)
[2019-04-23] MEDS ORDERED: ROCURONIUM BROMIDE 10 MG/ML 10 ML VIAL IV ONE (10:06)
[2019-04-23] MEDS ORDERED: SUCCINYLCHOLINE CHLORIDE 100 MG/5 ML SYR IV ONE (10:06)
[2019-04-23] MEDS ORDERED: LIDOCAINE 1% INJ 10MG/ML (20 ML MDV) ONE (10:06)
[2019-04-23] MEDS ORDERED: fentaNYL (PF) 50 MCG/ML 2 ML AMP ONE (10:06)
[2019-04-23] MEDS ORDERED: MIDAZOLAM 2 MG/2 ML VIAL ONE (10:06)
[2019-04-23] MEDS ORDERED: NEOSTIGMINE 1 MG/ML 10 ML VIAL ONE (10:06)
[2019-04-23] MEDS ORDERED: HYDROmorphone (PF) 1 MG/ML ONE (10:06)
[2019-04-23] MEDS ORDERED: SODIUM CHLORIDE 0.9% 50 ML with ceFAZolin 2,000 MG IV ONE ×2 (10:10)
[2019-04-23] MEDS ORDERED: BUPIVACAINE (PF) 0.25% 30 ML VIAL SQ ONE (10:37)
[2019-04-23] MEDS ORDERED: LACTATED RINGERS 1,000 ML IV ONE (10:39)
[2019-04-23] MEDS ORDERED: HYDROmorphone 1 MG/ML 1 ML SYRINGE IVP ONE ×3 (11:10→11:25)
--- NOTE | 2019-04-23 11:21 | P.OP ---
Date of Procedure: 04/23/19 Preoperative Diagnosis: Cholecystitis Postoperative Diagnosis: Cholecystitis Cholelithiasis Procedure(s) Performed: Laparoscopic cholecystectomy Anesthesia: [place] Surgeon: Gene Kwon Estimated Blood Loss (ml): 5 Pathology: other (Gallbladder) Condition: stable Disposition: PACU Description of Procedure: The patient was placed on the operating table. The patient received a general endotracheal tube anesthesia. The patients abdomen was prepped and draped in the usual sterile fashion. Through an infraumbilical stab incision, the fascia of the anterior abdominal wall was grasped with a pair of Kochers and then the Veress needle was placed in the peritoneal cavity. Position of the Veress needle was confirmed with positive drop test. The abdomen was then insufflated. After adequate insufflation, the 10 mm trocar was placed in the peritoneal cavity. Following this the laparoscope was placed in the peritoneal cavity. The patient was placed in the head-up, right side up position and then a 5 mm trocar was placed in the right lateral and right subcostal position under direct visualization. A 8 mm trocar was placed in the epigastric position. The gallbladder was grasped in the fundus and infundibulum. Traction on the gallbladder was placed in the lateral and the cephalad positions. The triangle of Calot was visualized.. The cystic duct was bluntly dissected until the union of the cystic duct and common bile duct was seen. A critical view of safety was achieved. The cystic duct was then divided and sealed with the Harmonic scissors. A PDS Endoloop was then placed throughout the cystic duct stump. The cystic artery divided and sealed with the Harmonic scissors. The gallbladder was then removed from the liver bed using Harmonic scissors. The gallbladder was then extracted through the epigastric port site. Operative field was checked for any bleeding spots and Harmonic scissors was used to coagulate the liver bed. The abdomen was irrigated. The trocars were removed. The skin was closed using interrupted 3-0 Vicryl suture. Dermabond dressing were applied. The patient tolerated the procedure well.
[2019-04-23] MEDS ORDERED: HYDROmorphone 0.5 MG/0.5 ML SYRINGE IVP ONE (11:35)
[2019-04-23] MEDS ORDERED: ONDANSETRON 4 MG/2 ML VIAL IVP ONE (11:36)
[2019-04-23 13:02] LABS: Glucose,Whole Blood 184 mg/dL (75-99)
[2019-04-23] MEDS: PANTOPRAZOLE 40 MG/10 ML VIAL IV SCH (13:10)
[2019-04-23] MEDS ORDERED: ALBUTEROL NEBULIZED 2.5 MG/3 ML INHALATION PRN (13:23)
[2019-04-23] MEDS ORDERED: hydrOXYzine HCL 25 MG TAB PO PRN (14:48)
[2019-04-23] MEDS: tiZANidine 4 MG TAB PO PRN (14:58)
[2019-04-23] MEDS: LORATADINE 10 MG TAB PO SCH (14:59)
[2019-04-23] MEDS: traMADol 50 MG TAB PO PRN (17:23)
[2019-04-23 17:55] LABS: Glucose,Whole Blood 205 mg/dL (75-99)
[2019-04-23] MEDS: SYMBICORT 160-4.5 MCG INHALER INHALATION SCH (19:31)
[2019-04-23 20:37] LABS: Glucose,Whole Blood 156 mg/dL (75-99)
[2019-04-23] MEDS: HEPARIN SODIUM,PORCINE 5,000 UNIT/ML 1 ML VIAL SQ SCH (20:41)
--- NOTE | 2019-04-23 21:59 | P.HPIM ---
History of Present Illness H&P Date: 04/23/19 Ceci Funk is a 54 yo F with PMH T2DM who presented to the ED complaining of a 1 day history of severe RUQ pain, nausea, vomiting. She states she was in her usual state of health yesterday, after dinner began to feel abdominal pain with associated nausea. She did not vomit but continued to experience severe pain radiating into her back. She has no previous history of abdominal surgery. She denies fevers or chills. In the ED her vitals were stable, labs remarkable for glucose 300, WBC 10k, CT with large gallstones without obstruction. Review of Systems All systems: negative Constitutional: Denies chills, Denies fever Eyes: denies blurred vision, denies pain Ears, nose, mouth and throat: Denies headache, Denies sore throat Cardiovascular: Denies chest pain, Denies shortness of breath Respiratory: Denies cough Gastrointestinal: Reports as per HPI, Reports abdominal pain, Reports nausea, Denies diarrhea, Denies vomiting Genitourinary: Denies dysuria, Denies hematuria Musculoskeletal: Denies myalgias Integumentary: Denies pruritus, Denies rash Neurological: Denies numbness, Denies weakness Psychiatric: Denies anxiety, Denies depression Endocrine: Denies fatigue, Denies weight change Past Medical History Past Medical History: Asthma, Chest Pain / Angina, Diabetes Mellitus, GERD/Reflux History of Any Multi-Drug Resistant Organisms: None Reported Past Surgical History: Adenoidectomy, Tonsillectomy Additional Past Surgical History / Comment(s): Right WRIST SURGERY, sinus surgery Past Anesthesia/Blood Transfusion Reactions: No Reported Reaction Additional Past Anesthesia/Blood Transfusion Reaction / Comment(s): Lidocaine- rash Past Psychological History: Depression Additional Psychological History / Comment(s): Mom in January so she has some times she feels down. Smoking Status: Never smoker Past Alcohol Use History: None Reported Past Drug Use History: None Reported - Past Family History Father Additional Family Medical History / Comment(s): unknown Mother Additional Family Medical History / Comment(s): arthritis, carpal tunnel, ex smoker, wears glasses Medications and Allergies Home Medications Medication Instructions Recorded Confirmed Type Albuterol Inhaler [Ventolin Hfa 2 puff INHALATION RT-Q4H PRN 04/17/17 04/23/19 History Inhaler] metFORMIN HCL 1,000 mg PO DAILY 04/17/17 04/23/19 History Budesonide/Formoterol Fumarate 2 puff INHALATION RT-BID 04/23/19 04/23/19 History [Symbicort 160-4.5 Mcg Inhaler] EPINEPHrine (Auto Inject) [Epipen] 0.3 mg SQ ONCE PRN 04/23/19 04/23/19 History Ergocalciferol (Vitamin D2) 50,000 unit PO Q30D 04/23/19 04/23/19 History [Drisdol] L.acidoph,Paracasei, B.lactis 1 tab PO DAILY 04/23/19 04/23/19 History [Probiotic] Levalbuterol Nebulized [Xopenex 1.25 mg INHALATION RT-Q4H PRN 04/23/19 04/23/19 History Nebulized] Levocetirizine Dihydrochloride 5 mg PO DAILY PRN 04/23/19 04/23/19 History [Xyzal] Liraglutide [Victoza 3-Ebenezer] 1.8 mg SQ DAILY 04/23/19 04/23/19 History Lorcaserin HCl [Belviq Xr] 20 mg PO DAILY 04/23/19 04/23/19 History Turmeric Root Extract [Turmeric] 500 mg PO DAILY 04/23/19 04/23/19 History Unknown Otc Water Pill 1 tab PO DAILY 04/23/19 04/23/19 History Allergies Allergy/AdvReac Type Severity Reaction Status Date / Time acetaminophen Allergy Severe Anaphylaxis Verified 04/23/19 06:40 aspirin Allergy Anaphylaxis Verified 04/23/19 06:40 diphenhydramine HCl Allergy Swelling Verified 04/23/19 06:40 [From Benadryl] latex Allergy Rash/Hives Verified 04/23/19 06:40 NSAIDS (Non-Steroidal Allergy Dyspnea Verified 04/23/19 06:40 Anti-Inflamma ANTIBIOTIC(unknown) Allergy Rash/Hives Uncoded 04/23/19 10:07 STERIODS Allergy Rash/Hives Uncoded 04/23/19 06:40 Physical Exam Vitals: Vital Signs Temp Pulse Pulse Resp BP BP Pulse Ox 04/23/19 21:07 70 20 04/23/19 21:04 97.3 F L 70 20 146/87 93 L 04/23/19 17:10 88 12 124/84 95 04/23/19 15:10 98.1 F 77 12 125/82 96 04/23/19 14:05 80 12 136/79 96 04/23/19 13:35 96 12 148/89 96 04/23/19 13:05 96 12 132/80 96 04/23/19 12:50 86 10 L 130/88 97 04/23/19 12:35 82 12 122/78 97 04/23/19 12:20 97.9 F 95 12 137/90 95 04/23/19 12:00 68 16 156/72 92 L 04/23/19 11:45 62 16 156/72 92 L 04/23/19 11:30 67 16 158/72 93 L 04/23/19 11:15 76 16 160/72 92 L 04/23/19 11:00 98 F 75 15 151/83 100 04/23/19 09:19 98.4 F 91 20 174/8 99 04/23/19 08:55 97.6 F 71 16 138/88 96 04/23/19 08:26 97.6 F 71 16 138/88 96 04/23/19 06:38 97.9 F 74 20 158/89 96 04/23/19 03:11 98 F 82 18 139/86 97 04/23/19 01:23 103 H 20 166/96 97 04/23/19 00:42 98.1 F 86 18 228/92 94 L Intake and Output 04/23/19 04/23/19 04/23/19 06:59 14:59 22:59 Intake Total 1895 400 Output Total 100 305 450 Balance -100 1590 -50 Intake: IV 1475 Oral 420 400 Output: Urine 100 300 450 Estimated Blood Loss 5 Other: Voiding Method Toilet # Voids 2 Weight 95.254 kg General: well nourished, well developed, NAD. Vitals reviewed Eyes: PERRL, EOMI, conjunctiva normal HENT: normocephalic, mucus membranes moist Neck: supple, no JVD Lungs: normal respiratory effort, no wheezes or rales CV: Regular rate and rhythm, no murmur. Peripheral pulses 2+ Abdomen: soft, nondistended, no organomegaly. Tenderness RUQ Lymph: no cervical or axillary LAD Skin: warm and dry. Neuro: A&Ox3, normal mood and affect Results CBC & Chem 7: 04/23/19 01:00 04/23/19 01:00 Labs: Abnormal Lab Results - Last 24 Hours (Table) 04/23/19 04/23/19 04/23/19 Range/Units 00:55 01:00 05:24 Glucose 364 H (74-99) mg/dL POC Glucose (mg/dL) 300 H (75-99) mg/dL Urine Glucose (UA) 4+ H (Negative) 04/23/19 04/23/19 04/23/19 Range/Units 09:26 13:00 17:53 Glucose (74-99) mg/dL POC Glucose (mg/dL) 137 H 184 H 205 H (75-99) mg/dL Urine Glucose (UA) (Negative) 04/23/19 Range/Units 20:35 Glucose (74-99) mg/dL POC Glucose (mg/dL) 156 H (75-99) mg/dL Urine Glucose (UA) (Negative) Thrombosis Risk Factor Assmnt - Choose All That Apply Each Factor Represents 1 point: Age 41-60 years, Obesity (BMI >25), Swollen legs (current) Other Risk Factors: No Other congenital or acquired thrombophilia - If yes, enter type in comment: No Thrombosis Risk Factor Assessment Total Risk Factor Score: 3 Thrombosis Risk Factor Assessment Level: Moderate Risk Assessment and Plan (1) Type 2 diabetes mellitus Current Visit: Yes Status: Acute Code(s): E11.9 - TYPE 2 DIABETES MELLITUS WITHOUT COMPLICATIONS SNOMED Code(s): 95102178 (2) Cholelithiasis Current Visit: Yes Status: Acute Code(s): K80.20 - CALCULUS OF GALLBLADDER W/O CHOLECYSTITIS W/O OBSTRUCTION SNOMED Code(s): 302511737 (3) Symptomatic cholelithiasis Current Visit: Yes Status: Acute Code(s): K80.20 - CALCULUS OF GALLBLADDER W/O CHOLECYSTITIS W/O OBSTRUCTION SNOMED Code(s): 625079092 (4) Abdominal pain Current Visit: No Status: Acute Code(s): R10.9 - UNSPECIFIED ABDOMINAL PAIN SNOMED Code(s): 62366327 Plan: 1. Symptomatic cholelithiasis. Surgery consulted. Pain control 2. T2DM. Continue metformin.Sliding scale 3. Asthma. continue claritin
[2019-04-24] MEDS: ONDANSETRON 4 MG/2 ML VIAL IVP PRN ×2 (01:43→07:55)
[2019-04-24 02:10] LABS: Glucose,Whole Blood 177 mg/dL (75-99)
[2019-04-24] MEDS: SODIUM CHLORIDE 0.9% 1,000 ML IV SCH ×3 (05:09→20:53)
[2019-04-24 05:14] LABS: Hemoglobin A1C 8.4 % (4.0-6.0)
[2019-04-24 06:31] LABS: Glucose,Whole Blood 191 mg/dL (75-99)
[2019-04-24] MEDS: INSULIN ASPART (NovoLOG) 100 UNIT/ML VIAL SQ SCH ×4 (06:33→20:52)
[2019-04-24] MEDS: traMADol 50 MG TAB PO PRN ×3 (07:56→20:53)
[2019-04-24] MEDS: SYMBICORT 160-4.5 MCG INHALER INHALATION SCH ×2 (08:46→18:49)
[2019-04-24 09:01] VITALS: RESP 16
[2019-04-24] MEDS: LISINOPRIL 10 MG TAB PO SCH (09:58)
[2019-04-24] MEDS: PANTOPRAZOLE 40 MG/10 ML VIAL IV SCH (10:00)
[2019-04-24] MEDS: HEPARIN SODIUM,PORCINE 5,000 UNIT/ML 1 ML VIAL SQ SCH ×2 (10:00→20:52)
[2019-04-24] MEDS ORDERED: METOCLOPRAMIDE 5 MG/ML 2 ML VIAL IVP PRN (10:31)
[2019-04-24] MEDS ORDERED: ACETAMINOPHEN TAB 500 MG TAB PO STA ×2 (10:32→10:37)
[2019-04-24] MEDS ORDERED: MAGNESIUM SULFATE-D5W PMX 1 GM in DEXTROSE/WATER 1 100ML.BAG IVPB ONE (11:00)
--- NOTE | 2019-04-24 11:27 | P.DS ---
Providers Date of admission: 04/23/19 04:56 Expected date of discharge: 04/24/19 Attending physician: Arsen Simmons MD Consults: 04/23/19 05:14 Consult Physician Stat Consulting Provider: Gene Kwon Consult Reason/Comments: RUQ abdominal pain, gallstones on CT Do you want consulting provider notified?: Yes, Notify in am Primary care physician: [facility] Course: Final Diagnoses: (1) Type 2 diabetes mellitus Current Visit: Yes Status: Acute Code(s): E11.9 - TYPE 2 DIABETES MELLITUS WITHOUT COMPLICATIONS SNOMED Code(s): 16364886 (2) Cholelithiasis Current Visit: Yes Status: Acute Code(s): K80.20 - CALCULUS OF GALLBLADDER W/O CHOLECYSTITIS W/O OBSTRUCTION SNOMED Code(s): 783065003 (3) Symptomatic cholelithiasis, status post laparoscopic cholecystectomy Current Visit: Yes Status: Acute Code(s): K80.20 - CALCULUS OF GALLBLADDER W/O CHOLECYSTITIS W/O OBSTRUCTION SNOMED Code(s): 341440909 (4) Abdominal pain Current Visit: No Status: Acute Code(s): R10.9 - UNSPECIFIED ABDOMINAL PAIN SNOMED Code(s): 01177801 Hospital course:Ceci Funk is a 54 yo F with PMH T2DM who presented to the ED complaining of a 1 day history of severe RUQ pain, nausea, vomiting. She states she was in her usual state of health yesterday, after dinner began to feel abdominal pain with associated nausea. She did not vomit but continued to experience severe pain radiating into her back. She has no previous history of abdominal surgery. She denies fevers or chills. In the ED her vitals were stable, labs remarkable for glucose 300, WBC 10k, CT with large gallstones without obstruction. Evaluated by surgery. Underwent laparoscopic cholecystectomy yesterday, tolerated procedure well. Reports nausea and vomiting last night, mild nausea this morning. Reglan, magnesium, generic IV Tylenol added to med regime. Hypertensive-ATA inhibitor initiated. Pain better controlled. Patient will be discharged home possibly later this afternoon pending Surgery clearance, tolerating diet advancement with improvement in nausea. Pain management as per surgery. Patient is being discharged home in a stable condition with guarded prognosis. EXAM: General: Alert and oriented 3, no acute distress, ambulating in room Eyes: PERRL, EOMI, conjunctiva normal HENT: normocephalic, mucus membranes moist Neck: supple, no JVD Lungs: normal respiratory effort, no wheezes or rales CV: Regular rate and rhythm, no murmur. Peripheral pulses 2+ Abdomen: soft, status post surgery, positive bowel sounds Lymph: no cervical or axillary LAD Skin: warm and dry. Neuro: No focal deficits The impression and plan of care has been dictated as directed. : I performed a history and examination of this patient, discussed the same with the dictator. I agree with the dictator's note ,documented as a scribe. Any additional findings or plans will be noted. Patient Condition at Discharge: Stable Plan - Discharge Summary Discharge Rx Participant: Yes New Discharge Prescriptions: New Lisinopril [Zestril] 10 mg PO DAILY #30 tab Continue metFORMIN HCL 1,000 mg PO DAILY Albuterol Inhaler [Ventolin Hfa Inhaler] 2 puff INHALATION RT-Q4H PRN PRN Reason: Shortness Of Breath EPINEPHrine (Auto Inject) [Epipen] 0.3 mg SQ ONCE PRN PRN Reason: Anaphylaxis Levalbuterol Nebulized [Xopenex Nebulized] 1.25 mg INHALATION RT-Q4H PRN PRN Reason: Shortness Of Breath Liraglutide [Victoza 3-Ebenezer] 1.8 mg SQ DAILY Lorcaserin HCl [Belviq Xr] 20 mg PO DAILY Ergocalciferol (Vitamin D2) [Drisdol] 50,000 unit PO Q30D L.acidoph,Paracasei, B.lactis [Probiotic] 1 tab PO DAILY Levocetirizine Dihydrochloride [Xyzal] 5 mg PO DAILY PRN PRN Reason: Allergy Symptoms Turmeric Root Extract [Turmeric] 500 mg PO DAILY Unknown Otc Water Pill 1 tab PO DAILY Budesonide/Formoterol Fumarate [Symbicort 160-4.5 Mcg Inhaler] 2 puff INHALATION RT-BID Discharge Medication List Albuterol Inhaler [Ventolin Hfa Inhaler] 2 puff INHALATION RT-Q4H PRN 04/17/17 [History] metFORMIN HCL 1,000 mg PO DAILY 04/17/17 [History] Budesonide/Formoterol Fumarate [Symbicort 160-4.5 Mcg Inhaler] 2 puff INHALATION RT-BID 04/23/19 [History] EPINEPHrine (Auto Inject) [Epipen] 0.3 mg SQ ONCE PRN 04/23/19 [History] Ergocalciferol (Vitamin D2) [Drisdol] 50,000 unit PO Q30D 04/23/19 [History] L.acidoph,Paracasei, B.lactis [Probiotic] 1 tab PO DAILY 04/23/19 [History] Levalbuterol Nebulized [Xopenex Nebulized] 1.25 mg INHALATION RT-Q4H PRN 04/23/19 [History] Levocetirizine Dihydrochloride [Xyzal] 5 mg PO DAILY PRN 04/23/19 [History] Liraglutide [Victoza 3-Ebenezer] 1.8 mg SQ DAILY 04/23/19 [History] Lorcaserin HCl [Belviq Xr] 20 mg PO DAILY 04/23/19 [History] Turmeric Root Extract [Turmeric] 500 mg PO DAILY 04/23/19 [History] Unknown Otc Water Pill 1 tab PO DAILY 04/23/19 [History] Lisinopril [Zestril] 10 mg PO DAILY #30 tab 04/24/19 [Rx] Follow up Appointment(s)/Referral(s): Janet Nava MD [Primary Care Provider] - 1 Week Gene Kwon MD [STAFF PHYSICIAN] - 1 Week Ambulatory/Diagnostic Orders: Complete Blood Count w/diff [LAB.AMB] Time Frame: 3 Days, Location: None Selecte d Patient Instructions/Handouts: Biliary Colic (ED), Gallstones (ED) Activity/Diet/Wound Care/Special Instructions: Pain management as per surgery.Discharged later this afternoon if tolerating diet, resolution of nausea, cleared by surgery.
[2019-04-24 11:49] LABS: Basophils % (A) 1 %; Eosinophils # (A) 0.1 k/uL (0-0.7); Eosinophils % (A) 1 %; HCT 34.3 % (34.0-46.0); HGB 11.2 gm/dL (11.4-16.0); Lymphocytes % (A) 25 %; MCH 26.6 pg (25.0-35.0); MCHC 32.8 g/dL (31.0-37.0); MCV 81.2 fL (80.0-100.0); Monocytes # (A) 0.3 k/uL (0-1.0); Monocytes % (A) 4 %; Neutrophils # (A) 5.6 k/uL (1.3-7.7); Neutrophils % (A) 69 %; Platelet Count 281 k/uL (150-450); RBC 4.22 m/uL (3.80-5.40); RDW 14.4 % (11.5-15.5); WBC 8.1 k/uL (3.8-10.6)
[2019-04-24 12:32] LABS: ALT 48 U/L (9-52); AST 38 U/L (14-36); African American GFR (CKD) >90 (>60 ml/min/1.73 sqM); Albumin 3.8 g/dL (3.5-5.0); Alkaline Phosphatase 76 U/L (38-126); Anion Gap 8 mmol/L; Blood Urea Nitrogen 6 mg/dL (7-17); Carbon Dioxide 27 mmol/L (22-30); Chloride 102 mmol/L (98-107); Glucose 165 mg/dL (74-99); Non-African American GFR(CKD) >90 (>60 ml/min/1.73 sqM); Potassium 4.2 mmol/L (3.5-5.1); Sodium 137 mmol/L (137-145); Total Bilirubin 0.4 mg/dL (0.2-1.3); Total Protein 6.7 g/dL (6.3-8.2)
[2019-04-24 13:04] LABS: Glucose,Whole Blood 275 mg/dL (75-99)
--- NOTE | 2019-04-24 14:04 | P.PN ---
Subjective Progress Note Date: 04/24/19 CHIEF COMPLAINT: Abdominal pain HISTORY OF PRESENT ILLNESS: Patient is status post laparoscopic cholecystectomy. POD #1. Patient reports nausea overnight but states it is improved this morning. She is tolerating diet. No emesis. Surgical pain is controlled. She complains of a headache. PHYSICAL EXAM: VITAL SIGNS: Reviewed. GENERAL: Well-developed in no acute distress. HEENT: No sclera icterus. Extraocular movements grossly intact. Moist buccal mucosa. Head is atraumatic, normocephalic. ABDOMEN: Soft. Nondistended. Upper scapular surgical sites clean dry and intact. NEUROLOGIC: Alert and oriented. Cranial nerves II through XII grossly intact. ASSESSMENT: 1. Cholecystitis and cholelithiasis, status post laparoscopic cholecystectomy PLAN: 1. Continue diet as tolerated 2. Increase activity 3. Incentive spirometer 4. Pain control 5. Stable for discharge home today from a surgical standpoint. Nurse practitioner note has been reviewed by physician. Signing provider agrees with the documented findings, assessment, and plan of care. Objective - Vital Signs Vital signs: Vital Signs Temp 98.1 F 04/24/19 11:44 Pulse 74 04/24/19 11:44 Resp 16 04/24/19 11:44 BP 145/82 04/24/19 11:44 Pulse Ox 97 04/24/19 11:44 Intake & Output 04/23/19 04/24/19 04/24/19 18:59 06:59 18:59 Intake Total 2055 240 Output Total 555 300 Balance 1500 -60 Intake: IV 1475 Oral 580 240 Output: Urine 550 300 Estimated Blood Loss 5 Other: Voiding Method Toilet # Voids 2 1 # Emeses 1 - Labs CBC & Chem 7: 04/24/19 11:01 04/24/19 11:01 Labs: Abnormal Lab Results - Last 24 Hours (Table) 04/23/19 04/23/19 04/23/19 Range/Units 01:00 17:53 20:35 Hgb (11.4-16.0) gm/dL BUN (7-17) mg/dL Creatinine (0.52-1.04) mg/dL Glucose (74-99) mg/dL POC Glucose (mg/dL) 205 H 156 H (75-99) mg/dL Hemoglobin A1c 8.4 H (4.0-6.0) % AST (14-36) U/L 04/24/19 04/24/19 04/24/19 Range/Units 02:10 06:29 11:01 Hgb 11.2 L (11.4-16.0) gm/dL BUN (7-17) mg/dL Creatinine (0.52-1.04) mg/dL Glucose (74-99) mg/dL POC Glucose (mg/dL) 177 H 191 H (75-99) mg/dL Hemoglobin A1c (4.0-6.0) % AST (14-36) U/L 04/24/19 04/24/19 Range/Units 11:01 13:02 Hgb (11.4-16.0) gm/dL BUN 6 L (7-17) mg/dL Creatinine 0.51 L (0.52-1.04) mg/dL Glucose 165 H (74-99) mg/dL POC Glucose (mg/dL) 275 H (75-99) mg/dL Hemoglobin A1c (4.0-6.0) % AST 38 H (14-36) U/L
[2019-04-24] MEDS ORDERED: SIMETHICONE 80 MG CHEWABLE PO SCH (14:26)
[2019-04-24] MEDS: tiZANidine 4 MG TAB PO PRN (14:51)
[2019-04-24] MEDS: SIMETHICONE 80 MG CHEWABLE PO SCH ×3 (14:52→21:53)
[2019-04-24] MEDS: metFORMIN 500 MG TAB PO SCH (14:57)
[2019-04-24] MEDS: LORATADINE 10 MG TAB PO SCH (14:57)
[2019-04-24] MEDS ORDERED: ACETAMINOPHEN TAB 325 MG TAB PO PRN (17:52)
[2019-04-24 18:02] LABS: Glucose,Whole Blood 228 mg/dL (75-99)
[2019-04-24 20:34] LABS: Glucose,Whole Blood 165 mg/dL (75-99)
[2019-04-24 22:21] VITALS: TEMP 97.8
[2019-04-25] MEDS: ONDANSETRON 4 MG/2 ML VIAL IVP PRN ×2 (02:32→10:31)
[2019-04-25] MEDS: MORPHINE SULFATE 4 MG/ML SYRINGE IV PRN (02:32)
[2019-04-25] MEDS: SODIUM CHLORIDE 0.9% 1,000 ML IV SCH (04:07)
[2019-04-25 07:20] LABS: Glucose,Whole Blood 205 mg/dL (75-99)
[2019-04-25] MEDS: SYMBICORT 160-4.5 MCG INHALER INHALATION SCH (07:32)
[2019-04-25] MEDS: LORATADINE 10 MG TAB PO SCH (08:16)
[2019-04-25] MEDS: LISINOPRIL 10 MG TAB PO SCH (08:16)
[2019-04-25] MEDS: PANTOPRAZOLE 40 MG/10 ML VIAL IV SCH (08:17)
[2019-04-25] MEDS: metFORMIN 500 MG TAB PO SCH (08:17)
[2019-04-25] MEDS: INSULIN ASPART (NovoLOG) 100 UNIT/ML VIAL SQ SCH (08:18)
[2019-04-25] MEDS: HEPARIN SODIUM,PORCINE 5,000 UNIT/ML 1 ML VIAL SQ SCH (08:18)
[2019-04-25] MEDS: SIMETHICONE 80 MG CHEWABLE PO SCH (09:18)
[2019-04-25] MEDS ORDERED: SENNOSIDES-DOCUSATE SODIUM 1 EACH TAB PO SCH (09:45)
[2019-04-25 10:43] VITALS: BP 139/80; PULSE 88
== END 2019-04-25 11:45 | disposition home or self-care (01) | DRG 419 ==
LOC: EC 00:41 → 6PED 04:56 → 4MS4W 04-24 18:52 → OBSVTOIN 04-25 08:05
PROVIDERS: ADMIT Family Medicine; ATTEND Family Medicine
PROC: 0FT44ZZ Resection of Gallbladder, Percutaneous Endoscopic Approach (ICD-10-PCS; principal; 2019-04-23 12:25)
DX: K80.10 Calculus of gallbladder with chronic cholecystitis without obstruction (principal); J45.909 Unspecified asthma, uncomplicated; E11.65 Type 2 diabetes mellitus with hyperglycemia; K21.9 Gastro-esophageal reflux disease without esophagitis; F32.9 Major depressive disorder, single episode, unspecified; R51 Headache; R11.2 Nausea with vomiting, unspecified; Z79.51 Long term (current) use of inhaled steroids; Z98.890 Other specified postprocedural states; Z79.899 Other long term (current) drug therapy; Z79.84 Long term (current) use of oral hypoglycemic drugs; Z88.8 Allergy status to other drugs, medicaments and biological substances; Z88.6 Allergy status to analgesic agent; Z91.040 Latex allergy status; Z90.89 Acquired absence of other organs; Z82.61 Family history of arthritis; Z87.442 Personal history of urinary calculi
CPT/HCPCS: 36415; 74019; 74177; 76705; 80053; 81003; 81025; 82150; 83036; 83690; 83735; 85025; 88304; 94640; 96361; 96372; 96374; 96375; 99285

== ENCOUNTER → 2019-06-16 | Day surgery (SDC) | payer BC ==
[2019-06-13 09:06] VITALS: BMI 37.2
[~2019-06-16] MED LIST changes: +ONDANSETRON 4 MG/2 ML VIAL IVP ONE; +PROPOFOL 10 MG/ML 20 ML VIAL IV ONE
[2019-06-16 08:27] VITALS: PULSE 94; TEMP 98.1
[2019-06-16 08:36] LABS: Glucose,Whole Blood 208 mg/dL (75-99)
--- NOTE | 2019-06-16 08:48 | P.GSHP ---
History of Present Illness H&P Date: 06/16/19 Chief Complaint: Gastritis This a 52-year-old female with complaints of nausea and epigastric pain. Patient is today for EGD. Past Medical History Past Medical History: Asthma, Chest Pain / Angina, Diabetes Mellitus, GERD/Reflux Additional Past Medical History / Comment(s): nausea and abdominal pain,bloating,belching. 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 carpal tunnel History of Any Multi-Drug Resistant Organisms: None Reported Past Surgical History: Adenoidectomy, Cholecystectomy, Orthopedic Surgery, Ton sillectomy Additional Past Surgical History / Comment(s): Right WRIST SURGERY, sinus surgery, fatty tumor removed from lt side Past Anesthesia/Blood Transfusion Reactions: Previous Problems w/ Anesthesia Additional Past Anesthesia/Blood Transfusion Reaction / Comment(s): Lidocaine- rash, anxiety. muscle cramps after gallbladder sx Smoking Status: Never smoker - Past Family History Father Additional Family Medical History / Comment(s): unknown Mother Family Medical History: Coronary Artery Disease (CAD) Additional Family Medical History / Comment(s): arthritis, carpal tunnel, ex sm oker, wears glasses Medications and Allergies Home Medications Medication Instructions Recorded Confirmed Type Albuterol Inhaler [Ventolin Hfa 2 puff INHALATION RT-Q4H PRN 04/17/17 06/16/19 History Inhaler] metFORMIN HCL 1,000 mg PO BID 04/17/17 06/16/19 History EPINEPHrine (Auto Inject) [Epipen] 0.3 mg SQ ONCE PRN 04/23/19 06/16/19 History Levocetirizine Dihydrochloride 5 mg PO DAILY PRN 04/23/19 06/16/19 History [Xyzal] Liraglutide [Victoza 3-Ebenezer] 1.8 mg SQ DAILY 04/23/19 06/16/19 History Acetaminophen/Pamabrom [Midol 1 each PO DAILY PRN 06/13/19 06/16/19 History Caplet] Calcium Carb/Magnesium Ox,Carb 1 tab PO DAILY 06/13/19 06/16/19 History [Keron-Mag 500-250 MG Chewable] Flaxseed Oil 1,000 mg PO DAILY 06/13/19 06/16/19 History Green Mixture Supplement 1 dose PO DAILY 06/13/19 06/16/19 History Herbal Laxative 1 tab PO DAILY 06/13/19 06/16/19 History [place]-3 Fatty Acids/Fish Oil [Fish 1 each PO DAILY 06/13/19 06/16/19 History Oil 1,000 mg Softgel] Allergies Allergy/AdvReac Type Severity Reaction Status Date / Time acetaminophen Allergy Severe Anaphylaxis Verified 06/16/19 08:17 aspirin Allergy Anaphylaxis Verified 06/16/19 08:17 diphenhydramine HCl Allergy Swelling Verified 06/16/19 08:17 [From Benadryl] ibuprofen Allergy Anaphylaxis Verified 06/16/19 08:17 latex Allergy Rash/Hives Verified 06/16/19 08:17 lidocaine Allergy Rash/Hives Verified 06/16/19 08:17 naproxen [From Aleve] Allergy Rash/Hives Verified 06/16/19 08:17 NSAIDS (Non-Steroidal Allergy Dyspnea Verified 06/16/19 08:17 Anti-Inflamma ANTIBIOTIC(unknown) Allergy Rash/Hives Uncoded 06/16/19 08:17 STERIODS Allergy Rash/Hives Uncoded 06/16/19 08:17 Surgical - Exam Vital Signs Temp Pulse Resp BP Pulse Ox 98.1 F 94 16 169/89 98 06/16/19 08:25 06/16/19 08:25 06/16/19 08:25 06/16/19 08:25 06/16/19 08:25 - General well developed, well nourished, no distress - Eyes PERRL - ENT normal pinna - Neck no masses - Respiratory normal expansion - Cardiovascular Rhythm: regular - Abdomen Abdomen: soft, non tender Results - Labs Abnormal Lab Results - Last 24 Hours (Table) 06/16/19 Range/Units 08:32 POC Glucose (mg/dL) 208 H (75-99) mg/dL Assessment and Plan Assessment: History of nausea and epigastric pain. We'll perform EGD
--- NOTE | 2019-06-16 08:56 | P.OP ---
Date of Procedure: 06/16/19 Preoperative Diagnosis: Gastritis Postoperative Diagnosis: Mild antral gastritis Procedure(s) Performed: EGD Anesthesia: MAC Surgeon: Gene Kwon Pathology: other (Antrum, esophagus) Condition: stable Disposition: PACU Description of Procedure: The patient's placed on the endoscopy table in the lateral position. She received IV sedation. The gastroscope placed oropharynx and passed in the esophagus and into the stomach. Scope was then placed through the pylorus. The first and second portion of the duodenum appeared normal. Scope was then brought back the antrum this was mildly inflamed. A biopsies performed. Scope was unretroflexed and remainder of the stomach appeared normal. There was no significant hiatal hernia. The GE junction was at 40 cm the distal esophagus was minimal inflamed a biopsies performed. The proximal esophagusAppeared Normal. The scope was then withdrawn for patient.
[2019-06-16 09:13] VITALS: BP 122/83; RESP 16
== END ==
LOC: ORWHC2ENDO 07:56
PROVIDERS: ATTEND Surgery
DX: K29.50 Unspecified chronic gastritis without bleeding (principal); K21.0 Gastro-esophageal reflux disease with esophagitis; J45.909 Unspecified asthma, uncomplicated; E11.9 Type 2 diabetes mellitus without complications; Z90.49 Acquired absence of other specified parts of digestive tract; Z90.89 Acquired absence of other organs; Z98.890 Other specified postprocedural states; Z79.84 Long term (current) use of oral hypoglycemic drugs; Z79.899 Other long term (current) drug therapy; Z91.040 Latex allergy status; Z88.1 Allergy status to other antibiotic agents; Z88.6 Allergy status to analgesic agent; Z88.8 Allergy status to other drugs, medicaments and biological substances; Z82.61 Family history of arthritis; Z82.49 Family history of ischemic heart disease and other diseases of the circulatory system
CPT/HCPCS: 81025; 88305; 43239; J2405; J2704

== ENCOUNTER → 2019-08-23 | Outpatient (CLI) | payer BC ==
[2019-08-23 10:37] LABS: Basophils % (A) 1 %; Eosinophils # (A) 0.4 k/uL (0-0.7); Eosinophils % (A) 6 %; HCT 40.9 % (34.0-46.0); HGB 13.3 gm/dL (11.4-16.0); Lymphocytes # (A) 2.8 k/uL (1.0-4.8); Lymphocytes % (A) 38 %; MCH 26.3 pg (25.0-35.0); MCHC 32.5 g/dL (31.0-37.0); Mean Platelet Volume 7.6; Monocytes # (A) 0.3 k/uL (0-1.0); Monocytes % (A) 4 %; Neutrophils # (A) 3.7 k/uL (1.3-7.7); Neutrophils % (A) 49 %; Platelet Count 409 k/uL (150-450); RBC 5.05 m/uL (3.80-5.40); RDW 14.5 % (11.5-15.5); WBC 7.5 k/uL (3.8-10.6)
--- NOTE | 2019-08-23 11:58 | XR ---
EXAMINATION TYPE: XR chest 2V DATE OF EXAM: 08/23/2019 COMPARISON: Chest x-ray January 16, 2018. HISTORY: Fatigue and weakness. TECHNIQUE: Frontal and lateral views of the chest are obtained. FINDINGS: There is no focal air space opacity, pleural effusion, or pneumothorax seen. The cardiac silhouette size is within normal limits. The osseous structures are intact. IMPRESSION: No acute cardiopulmonary process. No significant change from prior.
== END | disposition home or self-care (01) ==
LOC: LABWHC1 10:03
PROVIDERS: ATTEND Allergy & Immunology
DX: R53.83 Other fatigue (principal); R53.1 Weakness; M25.50 Pain in unspecified joint; B99.9 Unspecified infectious disease
CPT/HCPCS: 36415; 71046; 85025

== ENCOUNTER 2020-01-01 10:37 | Day surgery (SDC) | payer BC ==
[2019-12-29 11:34] VITALS: BMI 35.0
--- NOTE | 2019-12-31 14:19 | HP ---
HISTORY AND PHYSICAL DATE OF SURGERY: 01/01/2020 Ceci uFnk is a 54-year-old patient seen with symptomatic right carpal tunnel syndrome along with a symptomatic right trigger thumb. We discussed options. She elected to proceed with decompression of right median nerve along with release A1 aimee, right thumb. Consent regarding the procedure was obtained. PAST MEDICAL HISTORY: Ieu-jcwgcvb-ycsyrokkd diabetes, asthma. PAST SURGICAL HISTORY: Cholecystectomy. DAILY MEDICATIONS: Metformin, Midol, . ALLERGIES: ALEVE, GABAPENTIN, IBUPROFEN, ASPIRIN, TYLENOL, BENADRYL. SOCIAL HISTORY: Denies tobacco use. PHYSICAL EVALUATION OF THE RIGHT HAND: She has a positive carpal compression and carpal Tinel's causing numbness of tendon throughout the median nerve distribution. She has tenderness along the A1 aimee of the right thumb with clicking and catching. There is some decreased sensation throughout the median nerve distribution. She has good perfusion distally. There is good radial pulse is present. RADIOGRAPHS OF THE RIGHT WRIST: Reveal some osteoarthritic changes involving this carpometacarpal joint. An EMG of the upper extremity reveals severe right carpal tunnel syndrome. IMPRESSION: 1. Right carpal tunnel syndrome. 2. Right trigger thumb. 3. Evu-hnjxyjj-ycljjijmc diabetes. 4. Asthma. PLAN: Decompression right median nerve and Release A1 aimee of right thumb. MMJOVANNA / IJN: [id number] /
[~2020-01-01 10:37] MED LIST changes: +CLINDAMYCIN 900 MG in DEXTROSE 5% IN WATER 50 ML IVPB ONE; +HYDROmorphone 0.5 MG/0.5 ML SYRINGE IVP PRN; -LIDOCAINE 1% 20 ML VIAL (10MG/ML) FOR IV START INTRADERMA PRN; +MIDAZOLAM 2 MG/2 ML VIAL IV PRN; -ONDANSETRON 4 MG/2 ML VIAL IVP ONE; -PROPOFOL 10 MG/ML 20 ML VIAL IV ONE
[2020-01-01 11:00] VITALS: TEMP 97
[2020-01-01] MEDS ORDERED: ONDANSETRON 4 MG/2 ML VIAL ONE (11:03)
[2020-01-01 11:09] LABS: Glucose,Whole Blood 136 mg/dL (75-99)
[2020-01-01] MEDS ORDERED: fentaNYL (PF) 50 MCG/ML 2 ML AMP ONE (11:16)
[2020-01-01] MEDS ORDERED: MIDAZOLAM 2 MG/2 ML VIAL ONE ×2 (11:16)
[2020-01-01] MEDS ORDERED: PROPOFOL 10 MG/ML 20 ML VIAL IV ONE (11:16)
[2020-01-01] MEDS ORDERED: CLINDAMYCIN 150 MG/ML 4 ML VIAL IVPB ONE ×2 (11:25)
[2020-01-01] MEDS ORDERED: BUPIVACAINE (PF) 0.25% 30 ML VIAL SQ ONE (11:30)
[2020-01-01 11:56] VITALS: RESP 16
--- NOTE | 2020-01-01 11:59 | P.OP ---
Date of Procedure: 01/01/20 Preoperative Diagnosis: 1. Right carpal tunnel syndrome 2. Right trigger thumb Postoperative Diagnosis: Same Procedure(s) Performed: 1. Decompression right median nerve 2. Release A1 aimee right thumb Anesthesia: MAC, local Surgeon: Bruce Thompson Estimated Blood Loss (ml): 1 Pathology: none sent Condition: stable Disposition: PACU Indications for Procedure: 54-year-old patient seen with synthetic right carpal tunnel syndrome as well as a symptomatically right trigger thumb. After having treatment options discussed, she elected to proceed with decompression right median nerve and release A1 aimee right thumb. Operative Findings: See description of procedure Description of Procedure: The patient was taken to the operative suite. The patient received preoperative IV antibiotics. A well-padded tourniquet was placed on the proximal right upper extremity. The right upper extremity was prepped and draped in the normal sterile orthopedic fashion. We infiltrated the incision sites with quarter percent Marcaine totaling 15 mL. Once sufficient local analgesia was noted the extremity was elevated and the tourniquet was insufflated to 200. I now made an incision beginning at the distal volar wrist crease extending distally approximately 3 cm in line with the fourth metacarpal sharply through skin. Dissection was taken down through the palmar fascia to the transverse carpal ligament. I now incised the transverse carpal ligament. I completed the release proximally and distally with blunt Metzenbaums. There was good complete release of transcarpal ligament and good decompression of the nerve. I now turned my attention to the A1 aimee area right thumb. A 1 cm incision was made in that area. I dissected down to the A1 aimee. I now released A1 aimee with blunt Metzenbaums. There was complete release of the A1 aimee with good range of motion excursion of the thumb. There was no impingement of the tendon. The wound was irrigated. There was good hemostasis. Both incisions were proximal nylon suture. Sterile dressings were applied. The tourniquet was released and immediate capillary refill noted to all digits. Sterile web roll and Coban were applied. The patient was then awakened, transferred to recovery stable condition having tolerated the procedure well.
[2020-01-01 12:27] VITALS: BP 119/80; PULSE 73
== END 2020-01-01 12:45 | disposition home or self-care (01) ==
LOC: OR 10:37
PROVIDERS: ATTEND Orthopaedic Surgery
DX: G56.01 Carpal tunnel syndrome, right upper limb (principal); M65.311 Trigger thumb, right thumb; M19.031 Primary osteoarthritis, right wrist; I25.10 Atherosclerotic heart disease of native coronary artery without angina pectoris; K21.9 Gastro-esophageal reflux disease without esophagitis; R10.9 Unspecified abdominal pain; R14.0 Abdominal distension (gaseous); J45.909 Unspecified asthma, uncomplicated; E11.9 Type 2 diabetes mellitus without complications; Z90.49 Acquired absence of other specified parts of digestive tract; Z79.84 Long term (current) use of oral hypoglycemic drugs; Z79.899 Other long term (current) drug therapy; Z88.4 Allergy status to anesthetic agent; Z88.8 Allergy status to other drugs, medicaments and biological substances; Z88.6 Allergy status to analgesic agent; Z88.1 Allergy status to other antibiotic agents; Z91.040 Latex allergy status; Z88.5 Allergy status to narcotic agent
CPT/HCPCS: 81025; 64721; 26055; J2250; J2405; J3010; J2704

== ENCOUNTER → 2020-05-24 | Outpatient (CLI) | payer BC ==
[2020-05-24 10:59] LABS: HCT 44.4 % (34.0-46.0); HGB 14.5 gm/dL (11.4-16.0); MCHC 32.6 g/dL (31.0-37.0); MCV 82.6 fL (80.0-100.0); Mean Platelet Volume 7.6; Platelet Count 341 k/uL (150-450); RBC 5.38 m/uL (3.80-5.40); WBC 6.7 k/uL (3.8-10.6)
[2020-05-24 11:36] LABS: Appearance,Urine Clear (Clear); Bilirubin,Urine Negative (Negative); Blood,Urine Negative (Negative); Color,Urine Light Yellow; Glucose,Urine (UA) 4+ (Negative); Ketones,Urine Negative (Negative); Leukocyte Esterase,Urine Negative (Negative); Nitrite,Urine Negative (Negative); PH, Urine 5.5 (5.0-8.0); Protein,Urine Negative (Negative); Specific Gravity,Urine 1.008 (1.001-1.035); Urobilinogen,Urine <2.0 mg/dL (<2.0)
[2020-05-24 16:49] LABS: Hemoglobin A1C 7.7 % (4.0-6.0)
[2020-05-24 17:02] LABS: Erythrocyte Sedimentation Rate 10 mm/Hr (0-30)
[2020-05-24 17:11] LABS: Folate, Serum 12.7 ng/mL
[2020-05-24 17:12] LABS: African American GFR (CKD) 114.6 (60.0-200.0); Albumin 4.6 g/dL (3.80-4.90); Albumin/Globulin Ratio 1.92 (1.60-3.17); Anion Gap 8.9 mmol/L (4.00-12.00); BUN/Creat Ratio 17.14 Ratio (12.00-20.00); C Reactive Protein 0.7 mg/dL (0.0-0.8); Carbon Dioxide 26.1 mmol/L (21.6-31.8); Globulin 2.4 g/dL (1.6-3.3); Magnesium 1.9 mg/dL (1.5-2.4); Non-African American GFR(CKD) 98.9 (60.0-200.0); Potassium 4.8 mmol/L (3.5-5.5); Total Bilirubin 0.3 mg/dL (0.2-1.2)
[2020-05-25 15:28] LABS: Histone Antibody 0.3 UNITS (<1.0)
[2020-05-25 22:17] LABS: Anti-DNA, DS unit <1.0 IU/mL; Anti-Smith Ab Interp NEGATIVE (NEGATIVE); Cyclic Citrull Pep IgG Unit <0.5 U/mL; Cyclic Citrullinated Pep IgG NEGATIVE (NEGATIVE); DNA Double-Stranded NEGATIVE (NEGATIVE); JO-1 IgG Antibody <0.2 AI
== END | disposition home or self-care (01) ==
LOC: LABWHC1 09:40
PROVIDERS: ATTEND Nurse Practitioner Family
DX: M25.50 Pain in unspecified joint (principal); G89.4 Chronic pain syndrome; M79.7 Fibromyalgia; Z79.899 Other long term (current) drug therapy
CPT/HCPCS: 36415; 80053; 81003; 82306; 82550; 82607; 82746; 83036; 83516; 83519; 83735; 84207; 84425; 84446; 84590; 84591; 84597; 85027; 85652; 86038; 86140; 86200; 86225; 86235

== ENCOUNTER 2022-05-05 12:12 | Emergency (ER) | payer BC ==
[2022-05-05 13:02] VITALS: TEMP 98.3
[2022-05-05 14:17] VITALS: RESP 18
[2022-05-05 17:17] LABS: Basophils # (A) 0.1 k/uL (0-0.2); Basophils % (A) 1 %; Eosinophils # (A) 0.2 k/uL (0-0.7); Eosinophils % (A) 2 %; HCT 45.5 % (34.0-46.0); HGB 15.5 gm/dL (11.4-16.0); Lymphocytes % (A) 33 %; MCHC 34.1 g/dL (31.0-37.0); MCV 82.3 fL (80.0-100.0); Mean Platelet Volume 8.5; Monocytes # (A) 0.4 k/uL (0-1.0); Monocytes % (A) 5 %; Neutrophils # (A) 5.3 k/uL (1.3-7.7); Neutrophils % (A) 58 %; Platelet Count 310 k/uL (150-450); RBC 5.53 m/uL (3.80-5.40); RDW 12.9 % (11.5-15.5); WBC 9.1 k/uL (3.8-10.6)
[2022-05-05 17:19] LABS: Appearance,Urine Clear (Clear); Bilirubin,Urine Negative (Negative); Blood,Urine Negative (Negative); Color,Urine Colorless; Glucose,Urine (UA) 1+ (Negative); Ketones,Urine 1+ (Negative); Leukocyte Esterase,Urine Negative (Negative); Nitrite,Urine Negative (Negative); PH, Urine 5.5 (5.0-8.0); Protein,Urine Negative (Negative); Specific Gravity,Urine 1.005 (1.001-1.035); Urobilinogen,Urine <2.0 mg/dL (<2.0)
[2022-05-05 17:27] LABS: INR 0.9 (<1.2); Partial Thromboplastin Time 23.1 sec (22.0-30.0); Prothrombin Time 9.8 sec (9.0-12.0)
--- NOTE | 2022-05-05 17:33 | XR ---
EXAMINATION TYPE: XR chest 2V DATE OF EXAM: 05/05/2022 COMPARISON: 08/23/2019 HISTORY: Chest pain TECHNIQUE: FINDINGS: Heart and mediastinum are normal. Lungs are clear. Diaphragm is normal. Bony thorax is inta ct. IMPRESSION: Normal chest. No change.
[2022-05-05 17:39] LABS: ALT 28 U/L (4-34); AST 26 U/L (14-36); African American GFR (CKD) >90 (>60 ml/min/1.73 sqM); Albumin 4.8 g/dL (3.5-5.0); Alkaline Phosphatase 96 U/L (38-126); Anion Gap 7 mmol/L; Blood Urea Nitrogen 14 mg/dL (7-17); Calcium 9.6 mg/dL (8.4-10.2); Carbon Dioxide 25 mmol/L (22-30); Chloride 104 mmol/L (98-107); Glucose 248 mg/dL (74-99); Non-African American GFR(CKD) >90 (>60 ml/min/1.73 sqM); Potassium 4.4 mmol/L (3.5-5.1); Sodium 136 mmol/L (137-145); Total Bilirubin 0.4 mg/dL (0.2-1.3); Total Protein 7.5 g/dL (6.3-8.2)
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
--- NOTE | 2022-05-05 21:37 | CT ---
EXAMINATION TYPE: CT angio head neck DATE OF EXAM: 05/05/2022 COMPARISON: None HISTORY: Headaches, episode of tunnel vision today in right eye. CT DLP: 636.9 mGycm Automated exposure control for dose reduction was used. CONTRAST: Performed with IV Contrast, patient injected with 65cc mL of Isovue 370. Images obtained from the aortic arch to the vertex of the brain with the IV contrast. There are Three -D postprocessed images. There is normal branching pattern of the great vessels on the aortic arch. There is bilateral arteria l flow in the subclavian arteries. There is arterial flow in the common internal and external carotid arteries bilaterally. There is wide patency of the carotid artery bifurcations. There is arterial fl ow in both vertebral arteries. There is arterial flow in the vertebral basilar artery system. There is no evidence of carotid or vertebral artery aneurysm or dissection. There is arterial flow in the anterior middle and posterior cerebral arteries bilaterally. No mass ef fect. No evidence of intracranial aneurysm or neovascularity. No evidence of intracranial hemodynamic arterial stenosis. There is normal enhancement of the venous sinuses. The right posterior cerebral a rtery is filled mostly through the right posterior communicating artery. There is diminutive basilar artery. IMPRESSION: Negative CT angiogram of the neck. Negative CT angiogram of the brain.
[2022-05-05 22:18] VITALS: BP 160/95; PULSE 84
== END 2022-05-05 22:18 | disposition home or self-care (01) ==
LOC: EC 12:12
DX: I10 Essential (primary) hypertension (principal); R51.9 Headache, unspecified; J45.909 Unspecified asthma, uncomplicated; E11.9 Type 2 diabetes mellitus without complications; F32.A Depression, unspecified; Z88.1 Allergy status to other antibiotic agents; Z88.5 Allergy status to narcotic agent; Z88.6 Allergy status to analgesic agent; Z88.8 Allergy status to other drugs, medicaments and biological substances; Z91.040 Latex allergy status; Z90.49 Acquired absence of other specified parts of digestive tract; Z20.822 Contact with and (suspected) exposure to COVID-19
CPT/HCPCS: 36415; 80053; 84484; 85025; 85610; 85730; 81003; 87502; 87635; 71046; 70496; 70498; 99284; Q9967

== ENCOUNTER → 2022-05-09 | Outpatient (CLI) | payer BC ==
[2022-05-09 19:30] LABS: Rheumatoid Factor, Qnt <10 IU/mL (0-15)
[2022-05-09 20:47] LABS: Anti-Smith Ab Interp NEGATIVE (NEGATIVE); Cyclic Citrull Pep IgG Unit <0.5 U/mL; Cyclic Citrullinated Pep IgG NEGATIVE (NEGATIVE)
== END | disposition home or self-care (01) ==
LOC: LABWHC1 14:01
PROVIDERS: ATTEND Nurse Practitioner Family
DX: E55.9 Vitamin D deficiency, unspecified (principal); M25.50 Pain in unspecified joint; R53.82 Chronic fatigue, unspecified
CPT/HCPCS: 36415; 82306; 84439; 84443; 84481; 86038; 86140; 86200; 86235; 86431

== ENCOUNTER → 2022-11-28 | Outpatient (CLI) | payer BC ==
[2022-11-28 20:29] LABS: C Reactive Protein 0.4 mg/dL (0.00-0.80)
[2022-11-28 20:39] LABS: Homocysteine 8.58 UMOL/L (4.00-14.00)
[2022-11-28 23:37] LABS: EBV-EA (IgG) 0.6 AI; EBV-EBNA(IgG) >8.0; EBV-VCA (IgG) >8.0 AI
[2022-11-29 00:08] LABS: EBV-VCA (IgM) <0.2 AI
[2022-11-29 00:09] LABS: Clam IgE <0.10 kU/L; Codfish IgE <0.10 kU/L; Egg White IgE <0.10 kU/L; Peanut IgE <0.10 kU/L; Scallop IgE <0.10 kU/L; Shrimp IgE <0.10 kU/L; Soybean IgE <0.10 kU/L; Walnut IgE (Food) <0.10 kU/L
== END | disposition home or self-care (01) ==
LOC: LABWHC1 15:35
PROVIDERS: ATTEND Family Medicine
DX: Z13.6 Encounter for screening for cardiovascular disorders (principal); Z77.29 Contact with and (suspected) exposure to other hazardous substances; Z77.118 Contact with and (suspected) exposure to other environmental pollution; E63.9 Nutritional deficiency, unspecified; M85.80 Other specified disorders of bone density and structure, unspecified site; R53.83 Other fatigue; R10.84 Generalized abdominal pain; R41.9 Unspecified symptoms and signs involving cognitive functions and awareness
CPT/HCPCS: 36415; 82175; 82306; 82533; 82570; 82627; 82785; 83090; 83655; 83825; 86003; 86140; 86663; 86664; 86665

== ENCOUNTER → 2023-05-29 | Outpatient (CLI) | payer BC ==
--- NOTE | 2023-05-31 14:28 | MR ---
EXAMINATION TYPE: MR brain wo con DATE OF EXAM: 05/29/2023 2:27 PM CLINICAL INDICATION:Female, 58 years old with history of M54.2 cervicalgia R51.9 headache, Neck and b ack pain, headaches. COMPARISON: 05/05/2022, 03/25/2014. TECHNIQUE: Multi planar, multi sequence imaging was performed through the brain including: T1, T2, In version recovery, Diffusion weighted imaging, and gradient echo imaging. No gadolinium was given. FINDINGS: The myers-white junctions, ventricular system, basal cisterns appear unremarkable. Midline structures show no abnormality. Diffusion-weighted imaging shows no evidence of restricted diffusion. The suscep tibility weighted images do not reveal any evidence for micro-hemorrhage. The internal auditory canal sequences demonstrate no significant irregularity. The 7th cranial nerve s, 8 cranial nerves, and cerebellar pontine angles appear unremarkable. After the administration karis olinium, no abnormal enhancement is seen within the internal auditory canals. Vascular loop: None. The bone marrow signal is within normal limits. Paranasal sinuses and mastoid air cells: Moderate paranasal sinus mucosal thickening. Visualized orbits: Orbital contents are intact. IMPRESSION: 1. No evidence of intracranial mass or acute/subacute infarct. 2. Moderate paranasal sinus disease.
--- NOTE | 2023-05-31 14:48 | MR ---
EXAMINATION TYPE: MR cspine/tspine wo con DATE OF EXAM: 05/29/2023 3:00 PM CLINICAL INDICATION:Female, 58 years old with history of DDD; PHH, Neck and back pain, headaches. COMPARISON: 05/05/2022 TECHNIQUE: Multi planar, multi sequence imaging was performed utilizing: T1-weighted, T2-weighted, a nd turbo inversion recovery imaging of the cervical and thoracic spine. MR contrast: IV Contrast: cc , None. FINDINGS: CERVICAL: Alignment: The cervical vertebral bodies have preserved heights. Alignment is within normal limits gi cornelio patient positioning. Bones: Bone signal is within normal limits. There is mild reactive bony edema within the thoracic spi ne at the level of T6-T7 and T7-T8. Scattered degeneration changes with osteophyte formation and aubrie nt space narrowing. Facet joint arthropathy seen throughout the spine. Cord: The spinal cord is unremarkable with regards to their signal intensity and morphology. Discs: Intervertebral disc signal is maintained. C2-C3: No significant disc pathology. The spinal canal is patent. No neural foraminal stenosis. C3-C4: No significant disc pathology. The spinal canal is patent. No neural foraminal stenosis. C4-C5: No significant disc pathology. The spinal canal is patent. Bilateral facet and uncovertebral joint arthropathy are present with mild bilateral neural foraminal stenosis. C5-C6: A disc osteophyte complex is present with mild spinal canal stenosis. Bilateral facet and unc overtebral joint arthropathy are present with mild to moderate bilateral neural foraminal stenosis. C6-C7: No significant disc pathology. The spinal canal is patent. Bilateral facet and uncovertebral joint arthropathy are present with mild bilateral neural foraminal stenosis. C7-T1: No significant disc pathology. The spinal canal is patent. No neural foraminal stenosis. THORACIC: Facet joint hypertrophy changes at the level of T9-T10 and T10-T11 with mild narrowing of t he posterior right lateral spinal canal. No additional evidence significant spinal canal or neural fo raminal stenosis. Spinal cord is within normal limits Other: None. IMPRESSION: 1. No definitive evidence of disc herniation or significant spinal canal stenosis. No abnormal bony edema or evidence for acute process. 2. Mild disc degeneration with associated osteoarthritic changes worse in the thoracic spine at T6-T 7 and T7-T8 with reactive bony edema.
== END | disposition home or self-care (01) ==
LOC: RADMRIMAIN 13:32
PROVIDERS: ATTEND Psychiatry & Neurology Neurology
DX: J34.89 Other specified disorders of nose and nasal sinuses (principal); M47.814 Spondylosis without myelopathy or radiculopathy, thoracic region; M50.30 Other cervical disc degeneration, unspecified cervical region; M51.36 Other intervertebral disc degeneration, lumbar region; M51.34 Other intervertebral disc degeneration, thoracic region; R42 Dizziness and giddiness
CPT/HCPCS: 70551; 72141; 72146

== ENCOUNTER 2023-10-31 18:35 | Emergency (ER) | payer BC ==
[2023-10-31] MEDS: EPINEPHrine - Anaphylaxis Kit (1 mg/mL) IM STA ×2 (18:56→19:24)
[2023-10-31] MEDS: SODIUM CHLORIDE 0.9% 1,000 ML IV ONE (19:31)
[2023-10-31] MEDS: ONDANSETRON 4 MG/2 ML VIAL IVP STA (19:36)
[2023-10-31] MEDS: FAMOTIDINE 20 MG/2 ML VIAL IV STA (19:36)
--- NOTE | 2023-10-31 19:57 | ED ---
Allergic Reaction HPI - General Chief complaint: Allergic Reaction Stated complaint: allergic reaction Time Seen by Provider: 10/31/23 19:15 Source: EMS Mode of arrival: wheelchair Limitations: no limitations - History of Present Illness Initial Comments: 58-year-old female presents emergency department for allergic reaction. States that she was at her primary care office as she thinks she got something in her eye. She was given a Toradol injection and was referred to the eye doctor. States that shortly after receiving the Toradol she had immediate sensation that her throat was swelling. Patient does have multiple allergies including NSAIDs. She did not take anything for her symptoms but came straight into the emergency department. No notable lip or facial swelling. Some redness to the anterior chest. Patient does have oxygen saturations of 88% in triage. She denies any chest pain. No vomiting. No hypotension or altered mental status. No other alleviating, precipitating or modifying factors - Related Data Home Medications Medication Instructions Recorded Confirmed lisinopriL [Zestril] 20 mg PO DIRECTED 05/05/22 05/05/22 Previous Rx's Medication Instructions Recorded EPINEPHrine (Auto Inject) [Epipen] 0.3 mg IM ONCE PRN #2 each 10/31/23 Allergies Allergy/AdvReac Type Severity Reaction Status Date / Time acetaminophen Allergy Severe Anaphylaxis Verified 05/05/22 19:56 aspirin Allergy Anaphylaxis Verified 05/05/22 19:56 cefuroxime Allergy Rash/Hives Verified 05/05/22 19:56 Cephalosporins Allergy Rash/Hives Verified 05/05/22 19:56 diphenhydramine HCl Allergy Swelling Verified 05/05/22 19:56 [From Benadryl] ibuprofen Allergy Anaphylaxis Verified 05/05/22 19:56 latex Allergy Rash/Hives Verified 05/05/22 19:56 levalbuterol [From Xopenex] Allergy Rash/Hives Verified 05/05/22 19:56 lidocaine Allergy Rash/Hives Verified 05/05/22 19:56 naproxen [From Aleve] Allergy Rash/Hives Verified 05/05/22 19:56 NSAIDS (Non-Steroidal Allergy Dyspnea Verified 05/05/22 19:56 Anti-Inflamma tramadol Allergy Unknown Verified 05/05/22 19:56 ANTIBIOTIC(unknown) Allergy Rash/Hives Uncoded 05/05/22 19:56 STERIODS Allergy Rash/Hives Uncoded 05/05/22 19:56 sympathominethics Allergy Rash/Hives Uncoded 05/05/22 19:56 Review of Systems ROS Statement: Those systems with pertinent positive or pertinent negative responses have been documented in the HPI. ROS Other: All systems not noted in ROS Statement are negative. Past Medical History Past Medical History: Asthma, Chest Pain / Angina, Diabetes Mellitus, GERD/Reflux Additional Past Medical History / Comment(s): nausea and abdominal pain,bloating,belching. 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 carpal tunnel History of Any Multi-Drug Resistant Organisms: None Reported Past Surgical History: Adenoidectomy, Cholecystectomy, Orthopedic Surgery, Tonsillectomy Additional Past Surgical History / Comment(s): Right WRIST SURGERY, sinus surgery, fatty tumor removed from lt side Past Anesthesia/Blood Transfusion Reactions: Previous Problems w/ Anesthesia Additional Past Anesthesia/Blood Transfusion Reaction / Comment(s): Lidocaine- rash, anxiety. muscle cramps after gallbladder sx Past Psychological History: Depression Smoking Status: Never smoker Past Alcohol Use History: Occasional Past Drug Use History: None Reported - Past Family History Father Additional Family Medical History / Comment(s): unknown Mother Family Medical History: Coronary Artery Disease (CAD) Additional Family Medical History / Comment(s): arthritis, carpal tunnel, ex smoker, General Exam Limitations: no limitations General appearance: alert, anxious Head exam: Present: atraumatic, normocephalic, normal inspection Eye exam: Present: normal appearance, PERRL, EOMI. Absent: scleral icterus, conjunctival injection, periorbital swelling ENT exam: Present: normal exam, mucous membranes moist, other (No drooling, trismus, hoarseness or stridor) Neck exam: Present: normal inspection. Absent: tenderness, meningismus, lymphadenopathy Respiratory exam: Present: normal lung sounds bilaterally. Absent: respiratory distress, wheezes, rales, rhonchi, stridor Cardiovascular Exam: Present: normal rhythm, tachycardia, normal heart sounds. Absent: systolic murmur, diastolic murmur, rubs, gallop, clicks GI/Abdominal exam: Present: soft, normal bowel sounds. Absent: distended, tenderness, guarding, rebound, rigid Extremities exam: Present: normal inspection, full ROM, normal capillary refill. Absent: tenderness, pedal edema, joint swelling, calf tenderness Back exam: Present: normal inspection Neurological exam: Present: alert, oriented X3, CN II-XII intact Psychiatric exam: Present: normal affect, anxious Skin exam: Present: warm, dry, intact, normal color, other (Mild erythema to the anterior chest). Absent: rash Course Vital Signs 10/31/23 10/31/23 10/31/23 18:36 18:43 18:44 Temperature 97.5 F L Pulse Rate 103 H 108 H Respiratory 22 18 24 Rate Blood Pressure 182/80 203/122 O2 Sat by Pulse 92 L 90 L Oximetry 10/31/23 10/31/23 10/31/23 19:02 20:26 21:03 Temperature 98.7 F Pulse Rate 101 H 97 95 Respiratory 18 18 16 Rate Blood Pressure 157/83 142/88 108/69 O2 Sat by Pulse 94 L 97 97 Oximetry Medical Decision Making - Medical Decision Making Was pt. sent in by a medical professional or institution (, PA, SURFACE ROOM SHOP OPTICIAN, urgent care, hospital, or [facility]...) When possible be specific @ -No Did you speak to anyone other than the patient for history (EMS, parent, family, police, friend...)? What history was obtained from this source @ -No Did you review nursing and triage notes (agree or disagree)? Why? @ -I reviewed and agree with nursing and triage notes Were old charts reviewed (outside hosp., previous admission, EMS record, old EKG, old radiological studies, urgent care reports/EKG's, [facility] records)? Report findings @ -No old charts were reviewed Differential Diagnosis (chest pain, altered mental status, abdominal pain women, abdominal pain men, vaginal bleeding, weakness, fever, dyspnea, syncope, headache, dizziness, GI bleed, back pain, seizure, CVA, palpatations, mental health, musculoskeletal)? @ -Anaphylaxis, medication side effect, allergic reaction EKG interpreted by me (3pts min.). @ -Not done X-rays interpreted by me (1pt min.). @ -None done CT interpreted by me (1pt min.). @ -None done U/S interpreted by me (1pt. min.). @ -None done What testing was considered but not performed or refused? (CT, X-rays, U/S, labs)? Why? @ -None What meds were considered but not given or refused? Why? @ -Prednisone and Benadryl were considered however patient reports she has allergies to both Did you discuss the management of the patient with other professionals (professionals i.e. , PA, SURFACE ROOM SHOP OPTICIAN, lab, RT, psych nurse, sexual assault social worker, camera supervisor, teacher, chief contract officer, caseworker intake)? Give summary @ -No Was smoking cessation discussed for >3mins.? @ -No Was critical care preformed (if so, how long)? @ -No Were there social determinants of health that impacted care today? How? (Homelessness, low income, unemployed, alcoholism, drug addiction, transportation, low edu. Level, literacy, decrease access to med. care, residential, rehab)? @ -No Was there de-escalation of care discussed even if they declined (Discuss DNR or withdrawal of care, Hospice)? DNR status @ -No What co-morbidities impacted this encounter? (DM, HTN, Smoking, COPD, CAD, Can cer, CVA, ARF, Chemo, Hep., AIDS, mental health diagnosis, sleep apnea, morbid obesity)? @ -None Was patient admitted / discharged? Hospital course, mention meds given and route, prescriptions, significant lab abnormalities, going to OR and other pertinent info. @ -Upon arrival patient seen and evaluated in trauma 4. Thorough history and physical exam was performed. Patient was given a dose of epi as she does have significant allergies to Benadryl and prednisone. Patient reports no improvement in her symptoms therefore she is given a second dose of epi IM. Patient is watched for 2 hours and has no return of any of her symptoms. Patient had subjective throat closing however there was no visible signs of oral swelling or oral compromise. Patient was given epi due to her hypoxia and i nability to control her symptoms with antihistamines and steroids. She was able to wean off of oxygen. patient feels back to her baseline. She will be discharged home. Given prescription for EpiPen's. Instructed to use them for any airway compromise. Avoid Toradol in the future. Patient was agreeable to this and was discharged in stable condition Undiagnosed new problem with uncertain prognosis? @ -No Drug Therapy requiring intensive monitoring for toxicity (Heparin, Nitro, Insulin, Cardizem)? @ -No Were any procedures done? @ -No Diagnosis/symptom? @ -Acute allergic reaction, hypoxia Acute, or Chronic, or Acute on Chronic? @ -Acute Uncomplicated (without systemic symptoms) or Complicated (systemic symptoms)? @ -Complicated Side effects of treatment? @ -No Exacerbation, Progression, or Severe Exacerbation? @ -No Poses a threat to life or bodily function? How? (Chest pain, USA, [place], pneumonia, PE, COPD, DKA, ARF, appy, cholecystitis, CVA, Diverticulitis, Homicidal, Suicida l, threat to staff... and all critical care pts) @ -Yes as patient was hypoxic from her exposure Disposition Clinical Impression: Allergic reaction Disposition: HOME SELF-CARE Condition: Stable Instructions (If sedation given, give patient instructions): General Allergic Reaction (ED) Additional Instructions: If you have any return of your symptoms, return to the emergency department. Prescriptions: EPINEPHrine (Auto Inject) [Epipen] 0.3 mg IM ONCE PRN #2 each PRN Reason: Anaphylaxis Is patient prescribed a controlled substance at d/c from ED?: No Referrals: Mynor Osorio MD [Primary Care Provider] - 1-2 days Time of Disposition: 20:59
[2023-10-31 21:43] VITALS: BP 108/69; PULSE 95; RESP 16; TEMP 98.7
== END 2023-10-31 21:12 | disposition home or self-care (01) ==
LOC: EC 18:35
DX: T78.40XA Allergy, unspecified, initial encounter (principal); R09.02 Hypoxemia; L53.9 Erythematous condition, unspecified; R00.0 Tachycardia, unspecified; Z88.6 Allergy status to analgesic agent; Z88.1 Allergy status to other antibiotic agents; Z88.8 Allergy status to other drugs, medicaments and biological substances; Z91.040 Latex allergy status; Z88.4 Allergy status to anesthetic agent; Z88.5 Allergy status to narcotic agent
CPT/HCPCS: 99283; 96374; 96375; 96361; 96372 ×2; J0171; J2405; J3490

== ENCOUNTER 2024-07-04 17:09 | Emergency (ER) | payer BC ==
[2024-07-04 17:15] VITALS: RESP 20
[2024-07-04 18:07] LABS: Influenza A Detected (Not Detectd); Influenza B Not Detected (Not Detectd); RSV Not Detected (Not Detectd)
[2024-07-04] MEDS: SODIUM CHLORIDE 0.9% 1,000 ML IV STA (18:16)
[2024-07-04 18:19] LABS: Basophils % (A) 1 %; Eosinophils # (A) 0.2 k/uL (0-0.7); Eosinophils % (A) 3 %; HCT 45.3 % (34.0-46.0); HGB 15.2 gm/dL (11.4-16.0); Lymphocytes # (A) 0.6 k/uL (1.0-4.8); Lymphocytes % (A) 10 %; MCH 28.5 pg (25.0-35.0); MCHC 33.7 g/dL (31.0-37.0); MCV 84.7 fL (80.0-100.0); Mean Platelet Volume 7.1; Monocytes # (A) 0.4 k/uL (0-1.0); Monocytes % (A) 6 %; Neutrophils # (A) 4.7 k/uL (1.3-7.7); Neutrophils % (A) 79 %; Platelet Count 270 k/uL (150-450); RBC 5.35 m/uL (3.80-5.40); RDW 13.1 % (11.5-15.5)
[2024-07-04 18:32] LABS: ALT 22 U/L (4-34); AST 27 U/L (14-36); African American GFR (CKD) >90 (>60 ml/min/1.73 sqM); Albumin 4.8 g/dL (3.5-5.0); Alkaline Phosphatase 77 U/L (38-126); Anion Gap 10 mmol/L; Blood Urea Nitrogen 9 mg/dL (7-17); Calcium 9.6 mg/dL (8.4-10.2); Carbon Dioxide 25 mmol/L (22-30); Chloride 100 mmol/L (98-107); Glucose 112 mg/dL (74-99); Non-African American GFR(CKD) 86 (>60 ml/min/1.73 sqM); Potassium 4.4 mmol/L (3.5-5.1); Sodium 135 mmol/L (137-145); Total Bilirubin 0.6 mg/dL (0.2-1.3); Total Protein 7.8 g/dL (6.3-8.2)
--- NOTE | 2024-07-04 18:34 | ED ---
SOB HPI - General Chief Complaint: Shortness of Breath Stated Complaint: oxygen low, headache, fall Time Seen by Provider: 07/04/24 18:32 Source: patient, RN notes reviewed Mode of arrival: wheelchair Limitations: no limitations - History of Present Illness Initial Comments: 59-year-old female presenting for cough x 1 day with bodyaches, headache, and f ever. Also admits some chest pain with coughing. States she has a history of asthma and has been using albuterol treatments with little relief. States she has an anaphylactic reaction to Tylenol and all NSAIDs. - Related Data Home Medications Medication Instructions Recorded Confirmed lisinopriL [Zestril] 20 mg PO DIRECTED 05/05/22 05/05/22 Previous Rx's Medication Instructions Recorded EPINEPHrine (Auto Inject) [Epipen] 0.3 mg IM ONCE PRN #2 each 10/31/23 Oseltamivir [Tamiflu] 75 mg PO Q12HR #10 cap 07/04/24 Allergies Allergy/AdvReac Type Severity Reaction Status Date / Time acetaminophen Allergy Severe Anaphylaxis Verified 07/04/24 17:11 aspirin Allergy Anaphylaxis Verified 07/04/24 17:11 cefuroxime Allergy Rash/Hives Verified 07/04/24 17:11 Cephalosporins Allergy Rash/Hives Verified 07/04/24 17:11 diphenhydramine HCl Allergy Swelling Verified 07/04/24 17:11 [From Benadryl] ibuprofen Allergy Anaphylaxis Verified 07/04/24 17:11 latex Allergy Rash/Hives Verified 07/04/24 17:11 levalbuterol [From Xopenex] Allergy Rash/Hives Verified 07/04/24 17:11 lidocaine Allergy Rash/Hives Verified 07/04/24 17:11 naproxen [From Aleve] Allergy Rash/Hives Verified 07/04/24 17:11 NSAIDS (Non-Steroidal Allergy Dyspnea Verified 07/04/24 17:11 Anti-Inflamma tramadol Allergy Unknown Verified 07/04/24 17:11 ANTIBIOTIC(unknown) Allergy Rash/Hives Uncoded 07/04/24 17:11 STERIODS Allergy Rash/Hives Uncoded 07/04/24 17:11 sympathominethics Allergy Rash/Hives Uncoded 07/04/24 17:11 Review of Systems ROS Statement: Those systems with pertinent positive or pertinent negative responses have been documented in the HPI. ROS Other: All systems not noted in ROS Statement are negative. Past Medical History Past Medical History: Asthma, Chest Pain / Angina, Diabetes Mellitus, GERD/Reflux Additional Past Medical History / Comment(s): nausea and abdominal pain,bloating,belching. 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 carpal tunnel History of Any Multi-Drug Resistant Organisms: None Reported Past Surgical History: Adenoidectomy, Cholecystectomy, Orthopedic Surgery, Tonsillectomy Additional Past Surgical History / Comment(s): Right WRIST SURGERY, sinus surgery, fatty tumor removed from lt side Past Anesthesia/Blood Transfusion Reactions: Previous Problems w/ Anesthesia Additional Past Anesthesia/Blood Transfusion Reaction / Comment(s): Lidocaine- rash, anxiety. muscle cramps after gallbladder sx Past Psychological History: Depression Smoking Status: Never smoker Past Alcohol Use History: Occasional Past Drug Use History: None Reported - Past Family History Father Additional Family Medical History / Comment(s): unknown Mother Family Medical History: Coronary Artery Disease (CAD) Additional Family Medical History / Comment(s): arthritis, carpal tunnel, ex smoker, General Exam Limitations: no limitations General appearance: alert, in no apparent distress Head exam: Present: atraumatic, normocephalic, normal inspection Eye exam: Present: normal appearance, PERRL, EOMI. Absent: scleral icterus, conjunctival injection, periorbital swelling ENT exam: Present: normal exam, mucous membranes moist Neck exam: Present: normal inspection. Absent: tenderness, meningismus, lymphadenopathy Respiratory exam: Present: normal lung sounds bilaterally, wheezes (Mild expiratory wheezes in all lung newsome). Absent: respiratory distress, rales, rhonchi, stridor Cardiovascular Exam: Present: regular rate, normal rhythm, normal heart sounds. Absent: systolic murmur, diastolic murmur, rubs, gallop, clicks GI/Abdominal exam: Present: soft, normal bowel sounds. Absent: distended, tenderness, guarding, rebound, rigid Neurological exam: Present: alert, oriented X3 Psychiatric exam: Present: normal affect, normal mood Skin exam: Present: warm, dry, intact, normal color. Absent: rash Course Vital Signs 07/04/24 17:11 Temperature 101.6 F H Pulse Rate 128 H Respiratory 20 Rate Blood Pressure 126/66 O2 Sat by Pulse 95 Oximetry Medical Decision Making - Medical Decision Making Was pt. sent in by a medical professional or institution (, PA, POLYGRAPH OPERATOR, urgent care, hospital, or halfway...) When possible be specific @ -No Did you speak to anyone other than the patient for history (EMS, parent, family, police, friend...)? What history was obtained from this source @ -No Did you review nursing and triage notes (agree or disagree)? Why? @ -I reviewed and agree with nursing and triage notes Were old charts reviewed (outside hosp., previous admission, EMS record, old EK G, old radiological studies, urgent care reports/EKG's, halfway records)? Report findings @ -No old charts were reviewed Differential Diagnosis (chest pain, altered mental status, abdominal pain women, abdominal pain men, vaginal bleeding, weakness, fever, dyspnea, syncope, headache, dizziness, GI bleed, back pain, seizure, CVA, palpatations, mental health, musculoskeletal)? @ -Viral URI, influenza, COVID-19, RSV, pneumonia, asthma exacerbation EKG interpreted by me (3pts min.). @ -As above X-rays interpreted by me (1pt min.). @ -Chest x-ray reveals no acute process CT interpreted by me (1pt min.). @ -None done U/S interpreted by me (1pt. min.). @ -None done What testing was considered but not performed or refused? (CT, X-rays, U/S, labs)? Why? @ -None What meds were considered but not given or refused? Why? @ -Antipyretics not given due to patient states she has an anaphylactic reaction to all NSAIDs and Tylenol. Also did not give steroids due to patient has a steroid allergy Did you discuss the management of the patient with other professionals (professionals i.e. , PA, POLYGRAPH OPERATOR, lab, RT, psych nurse, social security specialist, loss prevention consultant, teacher, executive officer special warfare team, senior case manager)? Give summary @ -No Was smoking cessation discussed for >3mins.? @ -No Was critical care preformed (if so, how long)? @ -No Were there social determinants of health that impacted care today? How? (Homelessness, low income, unemployed, alcoholism, drug addiction, transportation, low edu. Level, literacy, decrease access to med. care, custodial, rehab)? @ -No Was there de-escalation of care discussed even if they declined (Discuss DNR or withdrawal of care, Hospice)? DNR status @ -No What co-morbidities impacted this encounter? (DM, HTN, Smoking, COPD, CAD, Cancer, CVA, ARF, Chemo, Hep., AIDS, mental health diagnosis, sleep apnea, morbid obesity)? @ -None Was patient admitted / discharged? Hospital course, mention meds given and route, prescriptions, significant lab abnormalities, going to OR and other perti nent info. @ -Discharge. This is a 59-year-old female presenting for cough x 1 day with fever and headache. Patient is tachycardic at 128 and febrile at 101.6. Blood pressure stable at 126/66. Satting at 95% on room air. No sign of respiratory distress. There is mild expiratory wheezing in all lung newsome bilaterally. Antipyretics not given due to patient states she has an anaphylactic reaction to all NSAIDs and Tylenol. Patient is provided with a IV fluid bolus for supportive care. Patient is positive for influenza A. Chest x-ray reveals no acute process. Lab work unremarkable. Results discussed with patient. Discussed diagnosis of influenza A. Prescribe Tamiflu to pharmacy. Supportive care discussed as well as appropriate return precautions. Case was discussed with my ED attending Dr. Stewart. Undiagnosed new problem with uncertain prognosis? @ -No Drug Therapy requiring intensive monitoring for toxicity (Heparin, Nitro, Insulin, Cardizem)? @ -No Were any procedures done? @ -No Diagnosis/symptom? @ -Influenza A Acute, or Chronic, or Acute on Chronic? @ -Acute Uncomplicated (without systemic symptoms) or Complicated (systemic symptoms)? @ -Uncomplicated Side effects of treatment? @ -No Exacerbation, Progression, or Severe Exacerbation? @ -No Poses a threat to life or bodily function? How? (Chest pain, USA, PA, pneumonia, PE, COPD, DKA, ARF, appy, cholecystitis, CVA, Diverticulitis, Homicidal, Suicidal, threat to staff... and all critical care pts) @ -Not at this time - Lab Data Result diagrams: 07/04/24 18:10 07/04/24 18:10 Lab Results 07/04/24 07/04/24 07/04/24 Range/Units 17:18 18:10 18:10 WBC 6.0 (3.8-10.6) k/uL RBC 5.35 (3.80-5.40) m/uL Hgb 15.2 (11.4-16.0) gm/dL Hct 45.3 (34.0-46.0) % MCV 84.7 (80.0-100.0) fL MCH 28.5 (25.0-35.0) pg MCHC 33.7 (31.0-37.0) g/dL RDW 13.1 (11.5-15.5) % Plt Count 270 (150-450) k/uL MPV 7.1 Neutrophils % 79 % Lymphocytes % 10 % Monocytes % 6 % Eosinophils % 3 % Basophils % 1 % Neutrophils # 4.7 (1.3-7.7) k/uL Lymphocytes # 0.6 L (1.0-4.8) k/uL Monocytes # 0.4 (0-1.0) k/uL Eosinophils # 0.2 (0-0.7) k/uL Basophils # 0.0 (0-0.2) k/uL Sodium 135 L (137-145) mmol/L Potassium 4.4 (3.5-5.1) mmol/L Chloride 100 (98-107) mmol/L Carbon Dioxide 25 (22-30) mmol/L Anion Gap 10 mmol/L BUN 9 (7-17) mg/dL Creatinine 0.77 (0.52-1.04) mg/dL Est GFR (CKD-EPI)AfAm >90 (>60 ml/min/1.73 sqM) Est GFR (CKD-EPI)NonAf 86 (>60 ml/min/1.73 sqM) Glucose 112 H (74-99) mg/dL Plasma Lactic Acid Vasquez (0.7-2.0) mmol/L Calcium 9.6 (8.4-10.2) mg/dL Total Bilirubin 0.6 (0.2-1.3) mg/dL AST 27 (14-36) U/L ALT 22 (4-34) U/L Alkaline Phosphatase 77 (38-126) U/L Total Protein 7.8 (6.3-8.2) g/dL Albumin 4.8 (3.5-5.0) g/dL Influenza Type A (PCR) Detected A (Not Detectd) Influenza Type B (PCR) Not Detected (Not Detectd) RSV (PCR) Not Detected (Not Detectd) SARS-CoV-2 (PCR) Not Detected (Not Detectd) 07/04/24 Range/Units 18:10 WBC (3.8-10.6) k/uL RBC (3.80-5.40) m/uL Hgb (11.4-16.0) gm/dL Hct (34.0-46.0) % MCV (80.0-100.0) fL MCH (25.0-35.0) pg MCHC (31.0-37.0) g/dL RDW (11.5-15.5) % Plt Count (150-450) k/uL MPV Neutrophils % % Lymphocytes % % Monocytes % % Eosinophils % % Basophils % % Neutrophils # (1.3-7.7) k/uL Lymphocytes # (1.0-4.8) k/uL Monocytes # (0-1.0) k/uL Eosinophils # (0-0.7) k/uL Basophils # (0-0.2) k/uL Sodium (137-145) mmol/L Potassium (3.5-5.1) mmol/L Chloride (98-107) mmol/L Carbon Dioxide (22-30) mmol/L Anion Gap mmol/L BUN (7-17) mg/dL Creatinine (0.52-1.04) mg/dL Est GFR (CKD-EPI)AfAm (>60 ml/min/1.73 sqM) Est GFR (CKD-EPI)NonAf (>60 ml/min/1.73 sqM) Glucose (74-99) mg/dL Plasma Lactic Acid Vasquez 1.0 (0.7-2.0) mmol/L Calcium (8.4-10.2) mg/dL Total Bilirubin (0.2-1.3) mg/dL AST (14-36) U/L ALT (4-34) U/L Alkaline Phosphatase (38-126) U/L Total Protein (6.3-8.2) g/dL Albumin (3.5-5.0) g/dL Influenza Type A (PCR) (Not Detectd) Influenza Type B (PCR) (Not Detectd) RSV (PCR) (Not Detectd) SARS-CoV-2 (PCR) (Not Detectd) - EKG Data -: EKG Interpreted by Me EKG Comments: EKG reveals sinus tachycardia with no ST changes. Ventricular rate 123 bpm, CO interval 146, QRS duration 82, QT/QTc 322/395 Disposition Clinical Impression: Influenza A Disposition: HOME SELF-CARE Condition: Stable Instructions (If sedation given, give patient instructions): Influenza (ED) Additional Instructions: Take Tamiflu as prescribed. Please return to the Emergency Department if symptoms worsen or any other concerns. Prescriptions: Oseltamivir [Tamiflu] 75 mg PO Q12HR #10 cap Is patient prescribed a controlled substance at d/c from ED?: No Referrals: Arsen Simmons MD [Primary Care Provider] - 1-2 days Time of Disposition: 19:00
--- NOTE | 2024-07-04 18:34 | XR ---
EXAMINATION TYPE: XR chest 2V DATE OF EXAM: 07/04/2024 6:25 PM COMPARISON: Chest radiographs from 05/05/2022 CLINICAL INDICATION: Female, 59 years old with history of cough; TECHNIQUE: XR chest 2V Frontal and lateral views of the chest. FINDINGS: Lungs/Pleura: There is no evidence of pleural effusion, focal consolidation, or pneumothorax. Pulmonary vascularity: Unremarkable. Heart/mediastinum: Cardiomediastinal silhouette is unremarkable. Musculoskeletal: No acute osseous pathology. IMPRESSION: No acute cardiopulmonary disease/process. [facility], , 07/04/2024 6:32 PM
[2024-07-04 19:25] VITALS: BP 186/99; PULSE 120; TEMP 101
== END 2024-07-04 19:49 | disposition home or self-care (01) ==
LOC: EC 17:09
DX: J10.1 Influenza due to other identified influenza virus with other respiratory manifestations (principal); R00.0 Tachycardia, unspecified; Z88.5 Allergy status to narcotic agent; Z88.1 Allergy status to other antibiotic agents; Z88.6 Allergy status to analgesic agent; Z88.8 Allergy status to other drugs, medicaments and biological substances; Z91.040 Latex allergy status
CPT/HCPCS: 36415; 71046; 80053; 83605; 85025; 87636; 93005; 96360; 99285